=== PATIENT | male | born 1960 | race Caucasian/White ===

== ENCOUNTER 2016-08-18 14:36 | Emergency (ER) | payer MEDICARE, OTHER ==
[~2016-08-18] VITALS: Ht 172.7 cm; Wt 66.0 kg
[~2016-08-18 14:36] MED LIST: BUPR-175 PO; KLON2TAB PO; LITH300 PO; LOVA10TA PO; PRED20 PO
[2016-08-18 15:12] VITALS: BP 119/88; PULSE 113; RESP 16; TEMP 98.1; O2SAT 98
[2016-08-18] MEDS ORDERED: PRED20 PO (15:12)
[2016-08-18] MEDS ORDERED: LOVA10TA PO (15:12)
[2016-08-18] MEDS ORDERED: AVOD0.5C PO (15:12)
[2016-08-18] MEDS ORDERED: WELLTAB39 PO (15:12)
[2016-08-18] MEDS ORDERED: OMEP20TA PO (15:12)
[2016-08-18] MEDS ORDERED: DIAZ5 PO (15:12)
[2016-08-18] MEDS ORDERED: HYDR12.57 PO (15:12)
[2016-08-18] MEDS ORDERED: SODIUM CHLORIDE 0.9% FLUSH 5 ML FLUSH IVF PRN (15:15)
[2016-08-18] MEDS ORDERED: ASPIRIN 81 MG CHEW TAB PO ONE (15:15)
[2016-08-18 15:28] VITALS: RESP 16; O2SAT 97
[2016-08-18 15:29] VITALS: BP_SYST 113; BP_SYST 119; BP_DIAS 76; BP_DIAS 92; PULSE 108; RESP 16; O2SAT 98
[2016-08-18 15:31] LABS: AUTOMATED NEUTROPHIL # 8.3 TH/MM3 (1.8-7.7); BASOPHIL # 0.1 TH/MM3 (0-0.2); BASOPHIL % 0.9 % (0.0-2.0); EOSINOPHIL % 0.3 % (0.0-4.0); LYMPH % 9.2 % (9.0-44.0); LYMPHOCYTE # 0.9 TH/MM3 (1.0-4.8); MEAN CELL VOLUME 89.5 FL (80.0-100.0); MEAN CORPUSCULAR HEMOGLOBIN 29.8 PG (27.0-34.0); MEAN CORPUSCULAR HGB CONC 33.3 % (32.0-36.0); NEUT % 86.6 % (16.0-70.0); PLATELET COUNT 173 TH/MM3 (150-450); RED BLOOD COUNT 4.91 MIL/MM3 (4.50-5.90); WHITE BLOOD COUNT 9.6 TH/MM3 (4.0-11.0)
--- NOTE | 2016-08-18 15:32 | RADHPO ---
EXAM DATE/TIME: 08/18/2016 15:25 [facility] COMPARISON: No previous studies available for comparison. INDICATIONS : Chest pains. MEDICAL HISTORY : None. SURGICAL HISTORY : None. ENCOUNTER: Initial ACUITY: 1 day PAIN SCORE: 7/10 LOCATION: Left chest FINDINGS: A single view of the chest demonstrates the lungs to be symmetrically aerated without evidence of mas s, infiltrate or effusion. The cardiomediastinal contours are unremarkable. Osseous structures are intact. CONCLUSION: No acute disease. Inder Maldonado MD FACR on August 18, 2016 at 15:30 Board Certified Radiologist. This report was verified electronically.
[2016-08-18 15:40] LABS: CHLORIDE 96 MEQ/L (98-107); POTASSIUM 3.9 MEQ/L (3.5-5.1); SODIUM (NA) 133 MEQ/L (136-145)
[2016-08-18 15:44] LABS: ANION GAP 9 MEQ/L (5-15); BICARBONATE 28.4 MEQ/L (21.0-32.0); BLOOD UREA NITROGEN 19 MG/DL (7-18)
[2016-08-18 15:47] LABS: ALT (GPT) 96 U/L (12-78); AST (GOT) 17 U/L (15-37); GLOMERULAR FILTRATION RATE 92 ML/MIN (>89)
[2016-08-18 15:49] LABS: TOTAL BILIRUBIN ADULT 0.2 MG/DL (0.2-1.0)
[2016-08-18 15:50] LABS: ALKALINE PHOSPHATASE 58 U/L (45-117)
[2016-08-18 16:15] LABS: HEMO FLAGS DIFF FINAL
--- NOTE | 2016-08-18 16:26 | PD ---
HPI Chief Complaint: Chest Pain Time Seen by Provider: 15:06 Travel History International Travel<30 days: No Contact w/Intl Traveler<30days: No Traveled to known affect area: No History of Present Illness HPI This is a 56-year-old male who has a history of hyperlipidemia who presents to the emergency department with left chest discomfort described as a heaviness that started this morning associated with some shortness of breath, moderate severity, resolved in the emergency department lasting for about an hour. He denies any associated nausea or diaphoresis. He's not had pain like this before. He thinks he had a stress test some 20 years ago. He is a difficult historian. PFSH Past Medical History Hx Anticoagulant Therapy: No Asthma: No Blood Disorders: No Bipolar Disorder: Yes Anxiety: Yes Depression: Yes Heart Rhythm Problems: No Cancer: No Cardiovascular Problems: Yes (HTN, CHOL) High Cholesterol: Yes Chemotherapy: No Chest Pain: No Congestive Heart Failure: No COPD: No Cerebrovascular Accident: No Diabetes: No Diminished Hearing: No Endocrine: No Gastrointestinal Disorders: Yes ("COLONOSCOPIES" X3 PER PT POLYPS REMOVED) Glaucoma: No Genitourinary: Yes (BPH) Headaches: No Hypertension: Yes Immune Disorder: No Implanted Vascular Access Dvce: No Musculoskeletal: No Neurologic: Yes (FACIAL NERVE PALSEY) Psychiatric: Yes (BIPOLAR) Reproductive: No Respiratory: No Immunizations Current: No Migraines: No Pneumonia: Yes Radiation Therapy: No Seizures: No Sleep Apnea: No Thyroid Disease: No Past Surgical History Abdominal Surgery: Yes (COLONOSCOPY X3) AICD: No Appendectomy: Yes Arteriovenous Shunt: No Cardiac Surgery: No Ear Surgery: No Endocrine Surgery: No Eye Surgery: No Genitourinary Surgery: No Hysterectomy: No Insulin Pump: No Joint Replacement: No Neurologic Surgery: No Pacemaker: No Thoracic Surgery: No Other Surgery: Yes Social History Alcohol Use: Yes (OCC) Tobacco Use: Yes (1 PPD + CIGARS) Substance Use: No Allergies-Medications (Allergen,Severity, Reaction): Coded Allergies: No Known Allergies (Verified , 08/18/16) Reported Meds & Prescriptions Reported Meds & Active Scripts Active Reported Hydrochlorothiazide 12.5 Mg Cap Unknown Dose PO DAILY Omeprazole 20 Mg Tab 20 Mg PO DAILY Avodart (Dutasteride) 0.5 Mg Cap 0.5 Mg PO DAILY Prednisone 20 Mg Tab 20 Mg PO BID Lovastatin 10 Mg Tab 10 Mg PO DAILY Valium (Diazepam) 5 Mg Tab 5 Mg PO DAILY PRN Wellbutrin Xl 24 HR (Bupropion HCl) 300 Mg Tab 300 Mg PO DAILY Review of Systems Except as stated in HPI: all other systems reviewed are Neg Physical Exam Narrative GENERAL:Well appearing, no acute distress SKIN: Warm and dry. HEAD: Atraumatic. Normocephalic. EYES: Pupils equal and round. No injection or drainage. ENT: Moist mucous membranes NECK: Trachea midline. CARDIOVASCULAR: Regular rate and rhythm. No murmur appreciated. RESPIRATORY: Clear to auscultation. Breath sounds equal bilaterally. GASTROINTESTINAL: Abdomen soft, non-tender, nondistended. MUSCULOSKELETAL: No obvious deformities. NEUROLOGICAL: Awake and alert. No obvious cranial nerve deficits. Moving all extremities. 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 Able to understand questions and articulate appropriate responses. Has decision-making capacity on my assessment. Data Data Last Documented VS Vital Signs Date Time Temp Pulse Resp B/P Pulse Ox O2 Delivery O2 Flow Rate FiO2 08/18/16 15:29 108 16 113/76 98 Nasal Cannula 2 119/92 08/18/16 15:12 98.1 Orders Electrocardiogram (08/18/16 15:15) Complete Blood Count With Diff (08/18/16 15:15) Comprehensive Metabolic Panel (08/18/16 15:15) Troponin I (08/18/16 15:15) Chest, Single Ap (08/18/16 15:15) Ecg Monitoring (08/18/16 15:15) Bilateral Bp Monitoring (08/18/16 15:15) Iv Access Insert/Monitor (08/18/16 15:15) Oximetry (08/18/16 15:15) Oxygen Administration (08/18/16 15:15) Aspirin Chew (Aspirin Chew) (08/18/16 15:15) Sodium Chloride 0.9% Flush (Ns Flush) (08/18/16 15:15) Labs Laboratory Tests Test 08/18/16 15:20 White Blood Count 9.6 TH/MM3 Red Blood Count 4.91 MIL/MM3 Hemoglobin 14.6 GM/DL Hematocrit 44.0 % Mean Corpuscular Volume 89.5 FL Mean Corpuscular Hemoglobin 29.8 PG Mean Corpuscular Hemoglobin 33.3 % Concent Red Cell Distribution Width 14.0 % Platelet Count 173 TH/MM3 Mean Platelet Volume 7.6 FL Neutrophils (%) (Auto) 86.6 % Lymphocytes (%) (Auto) 9.2 % Monocytes (%) (Auto) 3.0 % Eosinophils (%) (Auto) 0.3 % Basophils (%) (Auto) 0.9 % Neutrophils # (Auto) 8.3 TH/MM3 Lymphocytes # (Auto) 0.9 TH/MM3 Monocytes # (Auto) 0.3 TH/MM3 Eosinophils # (Auto) 0.0 TH/MM3 Basophils # (Auto) 0.1 TH/MM3 CBC Comment DIFF FINAL Differential Comment Sodium Level 133 MEQ/L Potassium Level 3.9 MEQ/L Chloride Level 96 MEQ/L Carbon Dioxide Level 28.4 MEQ/L Anion Gap 9 MEQ/L Blood Urea Nitrogen 19 MG/DL Creatinine 0.86 MG/DL Estimat Glomerular Filtration 92 ML/MIN Rate Random Glucose 79 MG/DL Calcium Level 9.0 MG/DL Total Bilirubin 0.2 MG/DL Aspartate Amino Transf 17 U/L (AST/SGOT) Alanine Aminotransferase 96 U/L (ALT/SGPT) Alkaline Phosphatase 58 U/L Troponin I LESS THAN 0.02 NG/ML Total Protein 6.1 GM/DL Albumin 3.4 GM/DL MDM Medical Decision Making Medical Screen Exam Complete: Yes Emergency Medical Condition: Yes Interpretation(s) EKG: Normal sinus rhythm with no ST changes No leukocytosis Mild hyponatremia Troponin is normal Differential Diagnosis Acute coronary syndrome, pulmonary embolism, panic attack, costochondritis Narrative Course This is a 56-year-old male who presents to the emergency department with chest discomfort. We sent a monitor and an IV was established. Labs were obtained which were reassuring. EKG was obtained which was nonischemic. Chest x-ray was obtained which was normal. I did offer the patient observation for serial cardiac enzymes and stress testing. He declined and wanted to go home. He says he feels much better and he is not concerned about his heart anymore. I think he has decision-making capacity and I can't keep him against his will. Patient was discharged home. Diagnosis Primary Impression: Chest pain Qualified Code: R07.9 - Chest pain, unspecified type Patient Instructions: General Instructions Additional Instructions: If you develop severe chest pain, shortness of breath, sweating, lightheadedness , dizziness or difficulty breathing return to the emergency department immediately. Followup with your primary care physician in 2-3 days if your symptoms are not resolved. Med/Other Pt SpecificInfo: No Change to Meds Disposition: 01 DISCHARGE HOME Condition: Stable Mady Rios MD Aug 18, 2016 16:26
[2016-08-18 16:32] VITALS: BP 110/80
--- NOTE | 2016-08-25 14:56 | EKG ---
Date Performed: 08/18/2016 Time Performed: 14:39:58 PTAGE: 56 years EKG: Sinus rhythm Compared to prior tracing no significant change Normal ECG PREVIOUS TRACING : 04/08/2016 14.59 DOCTOR: Bert Eason Interpretating Date/Time 08/25/2016 14:54:47
== END 2016-08-18 16:49 | disposition home or self-care (01) ==
LOC: PHED 14:36
DX: R07.9 Chest pain, unspecified (principal); R06.02 Shortness of breath
CPT/HCPCS: 71010; 80053; 84484; 85025; 93005

== ENCOUNTER 2016-08-24 14:22 | Emergency (ER) | payer MEDICARE, OTHER ==
[~2016-08-24] VITALS: Ht 165.1 cm; Wt 65.0 kg
[2016-08-24] VITALS (7 sets, daily range): BP systolic 91–115; BP diastolic 61–75; PULSE 82–122; RESP 16–18; TEMP 98.7; O2SAT 95–100
[~2016-08-24 14:22] MED LIST changes: +AVOD0.5C PO; -BUPR-175 PO; +DIAZ5 PO; +HYDR12.57 PO; -KLON2TAB PO; -LITH300 PO; +OMEP20TA PO; +WELLTAB39 PO
[2016-08-24] MEDS ORDERED: SODIUM CHLOR 0.9% 1000 ML INJ 1,000 ML IV ONE (14:45)
--- NOTE | 2016-08-24 14:53 | PD ---
HPI Chief Complaint: Psychiatric Symptoms Time Seen by Provider: 14:45 Travel History International Travel<30 days: No Contact w/Intl Traveler<30days: No Traveled to known affect area: No History of Present Illness HPI Patient is a 56-year-old male brought to emergency Department under [place] act. Patient was naked in public banging on a bystander's car with his autistic son allegedly who was also naked. Patient is a poor historian, he denies any complaints at this time. Patient is mumbling random thoughts. Per EMS patient had a syncopal episode while in police custody which is why EMS brought the patient in consult of the police. PFSH Past Medical History Hx Anticoagulant Therapy: No Asthma: No Blood Disorders: No Bipolar Disorder: Yes Anxiety: Yes Depression: Yes Heart Rhythm Problems: No Cancer: No High Cholesterol: Yes Chemotherapy: No Chest Pain: No Congestive Heart Failure: No COPD: No Cerebrovascular Accident: No Diabetes: No Diminished Hearing: No Endocrine: No Gastrointestinal Disorders: Yes ("COLONOSCOPIES" X3 PER PT POLYPS REMOVED) Glaucoma: No Genitourinary: Yes (BPH) Headaches: No Hypertension: Yes Immune Disorder: No Implanted Vascular Access Dvce: No Musculoskeletal: No Neurologic: Yes (FACIAL NERVE PALSEY) Reproductive: No Respiratory: No Immunizations Current: No Migraines: No Pneumonia: Yes Radiation Therapy: No Seizures: No Sleep Apnea: No Thyroid Disease: No Influenza Vaccination: No (unknown) Past Surgical History Abdominal Surgery: Yes AICD: No Appendectomy: Yes Arteriovenous Shunt: No Cardiac Surgery: No Ear Surgery: No Endocrine Surgery: No Eye Surgery: No Genitourinary Surgery: No Hysterectomy: No Insulin Pump: No Joint Replacement: No Neurologic Surgery: No Pacemaker: No Thoracic Surgery: No Other Surgery: Yes Social History Alcohol Use: Yes (OCC) Tobacco Use: Yes (1 PPD + CIGARS) Substance Use: Yes (cocaine) Allergies-Medications (Allergen,Severity, Reaction): Coded Allergies: No Known Allergies (Verified , 08/18/16) Reported Meds & Prescriptions Reported Meds & Active Scripts Active Ventolin Hfa 18 GM Inh (Albuterol Sulfate) 90 Mcg/Act Aer 2 Puff INH Q4-6H PRN Prednisone 50 Mg Tab 50 Mg PO DAILY Azithromycin 250 Mg Tab 250 Mg PO DIRECTED Take 2 tabs (500 mg) on day 1 then 1 tab daily x 4 days. Reported Hydrochlorothiazide 12.5 Mg Cap Unknown Dose PO DAILY Omeprazole 20 Mg Tab 20 Mg PO DAILY Avodart (Dutasteride) 0.5 Mg Cap 0.5 Mg PO DAILY Prednisone 20 Mg Tab 20 Mg PO BID Lovastatin 10 Mg Tab 10 Mg PO DAILY Valium (Diazepam) 5 Mg Tab 5 Mg PO DAILY PRN Wellbutrin Xl 24 HR (Bupropion HCl) 300 Mg Tab 300 Mg PO DAILY Review of Systems ROS Limitations: Altered Mental Status Except as stated in HPI: all other systems reviewed are Neg Cardiovascular: No: Chest Pain or Discomfort Respiratory: No: Shortness of Breath Neurologic: Positive: Syncope Physical Exam Narrative GENERAL: Well-developed, well-nourished, alert male. SKIN: Warm and dry. HEAD: Atraumatic. Normocephalic. EYES: Pupils equal and round. No scleral icterus. No injection or drainage. ENT: No nasal bleeding or discharge. Mucous membranes pink and moist. NECK: Trachea midline. No JVD. CARDIOVASCULAR: Tachycardic. No murmur appreciated. RESPIRATORY: No accessory muscle use. Coarse breath sounds throughout, diminished in bases. GASTROINTESTINAL: Abdomen soft, non-tender, nondistended. Hepatic and splenic margins not palpable. MUSCULOSKELETAL: No obvious deformities. No clubbing. No cyanosis. No edema. NEUROLOGICAL: Awake and alert. No obvious cranial nerve deficits. Motor grossly within normal limits. Normal speech. PSYCHIATRIC: Appropriate mood and affect; insight and judgment impaired. Data Data Last Documented VS Vital Signs Date Time Temp Pulse Resp B/P Pulse Ox O2 Delivery O2 Flow Rate FiO2 08/24/16 17:47 96 18 113/73 97 Room Air 08/24/16 14:25 98.7 Orders Complete Blood Count With Diff (08/24/16 14:31) Comprehensive Metabolic Panel (08/24/16 14:31) Prothrombin Time / Inr (Pt) (08/24/16 14:31) Act Partial Throm Time (Ptt) (08/24/16 14:31) Lactic Acid Sepsis Protocol (08/24/16 14:31) Magnesium (Mg) (08/24/16 14:31) Ckmb (Isoenzyme) Profile (08/24/16 14:31) Troponin I (08/24/16 14:31) Urinalysis - C+S If Indicated (08/24/16 14:31) Blood Culture (08/24/16 14:31) Sodium Chlor 0.9% 1000 Ml Inj (Ns 1000 M (08/24/16 14:45) Drug Screen, Random Urine (08/24/16 14:55) Chest, Single Ap (08/24/16 ) Psych Screen (08/24/16 15:52) Magnesium Sulfate 1 Gm Premix (Magnesium (08/24/16 16:15) Ct Brain W/O Iv Contrast(Rout) (08/24/16 ) Albuterol-Ipratropium Neb (Duoneb Neb) (08/24/16 16:15) Sputum Culture And Gram Stain (08/24/16 16:47) Azithromycin Inj (Zithromax Inj) (08/24/16 17:00) Methylprednisolone So Succ Inj (Solumedr (08/24/16 17:30) Labs Laboratory Tests Test 08/24/16 08/24/16 14:40 14:57 White Blood Count 6.5 TH/MM3 Red Blood Count 4.01 MIL/MM3 Hemoglobin 12.2 GM/DL Hematocrit 35.6 % Mean Corpuscular Volume 88.7 FL Mean Corpuscular Hemoglobin 30.4 PG Mean Corpuscular Hemoglobin 34.3 % Concent Red Cell Distribution Width 14.2 % Platelet Count 120 TH/MM3 Mean Platelet Volume 7.5 FL Neutrophils (%) (Auto) 84.0 % Lymphocytes (%) (Auto) 12.7 % Monocytes (%) (Auto) 3.1 % Eosinophils (%) (Auto) 0.1 % Basophils (%) (Auto) 0.1 % Neutrophils # (Auto) 5.4 TH/MM3 Lymphocytes # (Auto) 0.8 TH/MM3 Monocytes # (Auto) 0.2 TH/MM3 Eosinophils # (Auto) 0.0 TH/MM3 Basophils # (Auto) 0.0 TH/MM3 CBC Comment DIFF FINAL Differential Comment Prothrombin Time 10.6 SEC Prothromb Time International 1.0 RATIO Ratio Activated Partial 20.3 SEC Thromboplast Time Sodium Level 135 MEQ/L Potassium Level 3.5 MEQ/L Chloride Level 102 MEQ/L Carbon Dioxide Level 23.5 MEQ/L Anion Gap 10 MEQ/L Blood Urea Nitrogen 33 MG/DL Creatinine 0.60 MG/DL Estimat Glomerular Filtration 140 ML/MIN Rate Random Glucose 88 MG/DL Lactic Acid Level 0.8 mmol/L Calcium Level 7.9 MG/DL Magnesium Level 1.4 MG/DL Total Bilirubin 0.3 MG/DL Aspartate Amino Transf 15 U/L (AST/SGOT) Alanine Aminotransferase 45 U/L (ALT/SGPT) Alkaline Phosphatase 47 U/L Total Creatine Kinase 31 U/L Troponin I 0.02 NG/ML Total Protein 5.0 GM/DL Albumin 3.0 GM/DL Urine Color YELLOW Urine Turbidity CLEAR Urine pH 7.0 Urine Specific [place] 1.021 Urine Protein NEG mg/dL Urine Glucose (UA) NEG mg/dL Urine Ketones NEG mg/dL Urine Occult Blood NEG Urine Nitrite NEG Urine Bilirubin NEG Urine Urobilinogen LESS THAN 2.0 MG/DL Urine Leukocyte Esterase NEG Urine RBC 1 /hpf Urine WBC 2 /hpf Urine Mucus FEW /lpf Microscopic Urinalysis Comment CATH-CULT NOT IND Urine Opiates Screen NEG Urine Barbiturates Screen NEG Urine Amphetamines Screen NEG Urine Benzodiazepines Screen POS Urine Cocaine Screen NEG Urine Cannabinoids Screen NEG MDM Medical Decision Making Medical Screen Exam Complete: Yes Emergency Medical Condition: Yes Interpretation(s) Last Impressions Head CT 08/24/16 0000 Signed Impressions: Service Date/Time: Wednesday, August 24, 2016 17:05 - CONCLUSION: Normal examination. Edward Ferrer MD Chest X-Ray 08/24/16 0000 Signed Impressions: Service Date/Time: Wednesday, August 24, 2016 15:07 - CONCLUSION: No acute disease. Edward Ferrer MD Laboratory Tests Vital Signs Date Time Temp Pulse Resp B/P Pulse Ox O2 Delivery O2 Flow Rate FiO2 08/24/16 16:34 86 103/75 97 Room Air 08/24/16 15:26 92 18 97/69 98 Room Air 08/24/16 15:04 113 108/61 95 Room Air 08/24/16 14:25 98.7 122 91/62 Test 08/24/16 08/24/16 14:40 14:57 White Blood Count 6.5 TH/MM3 Red Blood Count 4.01 MIL/MM3 Hemoglobin 12.2 GM/DL Hematocrit 35.6 % Mean Corpuscular Volume 88.7 FL Mean Corpuscular Hemoglobin 30.4 PG Mean Corpuscular Hemoglobin 34.3 % Concent Red Cell Distribution Width 14.2 % Platelet Count 120 TH/MM3 Mean Platelet Volume 7.5 FL Neutrophils (%) (Auto) 84.0 % Lymphocytes (%) (Auto) 12.7 % Monocytes (%) (Auto) 3.1 % Eosinophils (%) (Auto) 0.1 % Basophils (%) (Auto) 0.1 % Neutrophils # (Auto) 5.4 TH/MM3 Lymphocytes # (Auto) 0.8 TH/MM3 Monocytes # (Auto) 0.2 TH/MM3 Eosinophils # (Auto) 0.0 TH/MM3 Basophils # (Auto) 0.0 TH/MM3 CBC Comment DIFF FINAL Differential Comment Prothrombin Time 10.6 SEC Prothromb Time International 1.0 RATIO Ratio Activated Partial 20.3 SEC Thromboplast Time Sodium Level 135 MEQ/L Potassium Level 3.5 MEQ/L Chloride Level 102 MEQ/L Carbon Dioxide Level 23.5 MEQ/L Anion Gap 10 MEQ/L Blood Urea Nitrogen 33 MG/DL Creatinine 0.60 MG/DL Estimat Glomerular Filtration 140 ML/MIN Rate Random Glucose 88 MG/DL Lactic Acid Level 0.8 mmol/L Calcium Level 7.9 MG/DL Magnesium Level 1.4 MG/DL Total Bilirubin 0.3 MG/DL Aspartate Amino Transf 15 U/L (AST/SGOT) Alanine Aminotransferase 45 U/L (ALT/SGPT) Alkaline Phosphatase 47 U/L Total Creatine Kinase 31 U/L Troponin I 0.02 NG/ML Total Protein 5.0 GM/DL Albumin 3.0 GM/DL Urine Color YELLOW Urine Turbidity CLEAR Urine pH 7.0 Urine Specific [place] 1.021 Urine Protein NEG mg/dL Urine Glucose (UA) NEG mg/dL Urine Ketones NEG mg/dL Urine Occult Blood NEG Urine Nitrite NEG Urine Bilirubin NEG Urine Urobilinogen LESS THAN 2.0 MG/DL Urine Leukocyte Esterase NEG Urine RBC 1 /hpf Urine WBC 2 /hpf Urine Mucus FEW /lpf Microscopic Urinalysis Comment CATH-CULT NOT IND Urine Opiates Screen NEG Urine Barbiturates Screen NEG Urine Amphetamines Screen NEG Urine Benzodiazepines Screen POS Urine Cocaine Screen NEG Urine Cannabinoids Screen NEG Differential Diagnosis Substance abuse versus mood disorder versus sepsis versus CVA versus electrolyte abnormality versus cardiac arrhythmia versus other Narrative Course Patient is a 56-year-old male brought in by EMS under [place] act for evaluation after being found in public naked banging on the bystander car. Patient was tachycardic when EMS arrived on the scene with a heart rate in the 140s, he's been given 1 L IV fluids en route, his heart rate is 120s now, BP 90s over 50s. Patient's thought process is all over the place. Labs and imaging ordered and pending. IV access initiated, telemetry monitoring and continuous pulse oximetry placed. CBC reviewed, platelets 120, mild anemia noted. Chemistry mag 1.4, calcium 7.9 Urine tox screen is positive for benzodiazepines. Patient does admit to taking Valium. Urinalysis unremarkable Coags are unremarkable Chest x-ray is unremarkable DuoNeb 2 ordered due to coarse breath sounds and extra wheezing. Patient does have a nonproductive cough. Vital signs remain stable, patient is no longer tachycardic with a heart rate of 86, blood pressure improved from 91/62-->103/75 after 2 L of IV fluids. CT scan of brain shows no acute abnormality. Patient given Solu-Medrol as well as azithromycin. Patient has a long history of tobacco use since he was a teenager, patient likely has undiagnosed COPD. Patient will be given a prescription for prednisone and azithromycin as well as albuterol inhaler. Patient is medically cleared for psychiatric evaluation at this time. Diagnosis Primary Impression: Medical clearance for psychiatric admission Additional Impression: Chronic obstructive pulmonary disease (COPD) suggested by initial evaluation Med/Other Pt SpecificInfo: Prescription(s) given Scripts Albuterol 18 GM Inh (Ventolin Hfa 18 GM Inh)90 Mcg/Act Aer2 Puff INH Q4-6H PRN ( SHORTNESS OF BREATH) #1 INHALER Ref 0 Prov:Pearl Wills 08/24/16 Prednisone 50 Mg Tab50 Mg PO DAILY #5 TAB Ref 0 Prov:Pearl Wills 08/24/16 Azithromycin 250 Mg Rmg909 Mg PO DIRECTED #6 TAB Ref 0 Take 2 tabs (500 mg) on day 1 then 1 tab daily x 4 days. Prov:Pearl Wills 08/24/16 Condition: Stable Pearl Wills Aug 24, 2016 14:53
[2016-08-24 15:03] LABS: AUTOMATED NEUTROPHIL # 5.4 TH/MM3 (1.8-7.7); BASOPHIL % 0.1 % (0.0-2.0); EOSINOPHIL % 0.1 % (0.0-4.0); HEMATOCRIT 35.6 % (39.0-51.0); HEMO FLAGS DIFF FINAL; LYMPH % 12.7 % (9.0-44.0); LYMPHOCYTE # 0.8 TH/MM3 (1.0-4.8); MEAN CELL VOLUME 88.7 FL (80.0-100.0); MEAN CORPUSCULAR HEMOGLOBIN 30.4 PG (27.0-34.0); MEAN CORPUSCULAR HGB CONC 34.3 % (32.0-36.0); MONO % 3.1 % (0.0-8.0); PLATELET COUNT 120 TH/MM3 (150-450); RED BLOOD COUNT 4.01 MIL/MM3 (4.50-5.90); RED CELL DISTRIBUTION WIDTH 14.2 % (11.6-17.2); WHITE BLOOD COUNT 6.5 TH/MM3 (4.0-11.0)
--- NOTE | 2016-08-24 15:17 | RADRPT ---
EXAM DATE/TIME: 08/24/2016 15:07 [facility] COMPARISON: CHEST SINGLE AP, August 18, 2016, 15:25. INDICATIONS : Wheezing, Chest Pain. MEDICAL HISTORY : None. SURGICAL HISTORY : None. ENCOUNTER: Initial ACUITY: 1 day PAIN SCORE: 4/10 LOCATION: Bilateral chest FINDINGS: A single view of the chest demonstrates the lungs to be symmetrically aerated without evidence of mas s, infiltrate or effusion. The cardiomediastinal contours are unremarkable. Osseous structures are intact. CONCLUSION: No acute disease. Edward Ferrer MD on August 24, 2016 at 15:16 Board Certified Radiologist. This report was verified electronically.
[2016-08-24 15:21] LABS: AMPHETAMINE, URINE NEG (NEG); BARBITURATES, URINE NEG (NEG); COCAINE, URINE NEG (NEG)
[2016-08-24 15:23] LABS: BLOOD, URINE NEG (NEG); GLUCOSE,URINE NEG (NEG); KETONE, URINE NEG (NEG); MUCUS URINE FEW /lpf (OCC); NITRITE,URINE NEG (NEG); URINE COLOR YELLOW (YELLW/STRAW)
[2016-08-24 15:25] LABS: APTT (PATIENT) 20.3 SEC (24.3-30.1); PROTHROMBIN TIME - PATIENT 10.6 SEC (9.8-11.6)
[2016-08-24 15:25] LABS: COMMENT (UR) CATH-CULT NOT IND; CULTURE IF INDICATED CATH CULTURE NOT IND
[2016-08-24 15:26] LABS: ALT (GPT) 45 U/L (12-78); ANION GAP 10 MEQ/L (5-15); AST (GOT) 15 U/L (15-37); BICARBONATE 23.5 MEQ/L (21.0-32.0); BLOOD UREA NITROGEN 33 MG/DL (7-18); CHLORIDE 102 MEQ/L (98-107); GLOMERULAR FILTRATION RATE 140 ML/MIN (>89); MAGNESIUM 1.4 MG/DL (1.5-2.5); POTASSIUM 3.5 MEQ/L (3.5-5.1); SODIUM (NA) 135 MEQ/L (136-145)
[2016-08-24 15:30] LABS: ALKALINE PHOSPHATASE 47 U/L (45-117); TOTAL BILIRUBIN ADULT 0.3 MG/DL (0.2-1.0)
[2016-08-24 15:40] LABS: CREATINE KINASE 31 U/L (39-308)
[2016-08-24] MEDS: RESP: ALBUTEROL 2.5 MG/IPRATROPIUM 0.5 MG NEB (SCH) INH ×2 (16:15→16:17)
[2016-08-24] MEDS ORDERED: MAGNESIUM SULFATE 1 GM PREMIX 100 ML IV ONE (16:15)
[2016-08-24] MEDS ORDERED: AZITHROMYCIN INJ 500 MG in SODIUM CHLOR 0.9% 250 ML INJ 250 ML IV ONE (17:00)
--- NOTE | 2016-08-24 17:18 | RADRPT ---
EXAM DATE/TIME: 08/24/2016 17:05 [facility] COMPARISON: No previous studies available for comparison. INDICATIONS : Altered mental status today. RADIATION DOSE: 40.21 CTDIvol (mGy) MEDICAL HISTORY : Hypertension. SURGICAL HISTORY : Appendectomy. ENCOUNTER: Initial ACUITY: 1 day PAIN SCALE: 0/10 LOCATION: Bilateral head TECHNIQUE: Multiple contiguous axial images were obtained of the head. Using automated exposure control and adj ustment of the mA and/or kV according to patient size, radiation dose was kept as low as reasonably a chievable to obtain optimal diagnostic quality images. FINDINGS: CEREBRUM: The ventricles are normal for age. No evidence of midline shift, mass lesion, hemorrhage or acute in farction. No extra-axial fluid collections are seen. POSTERIOR FOSSA: The cerebellum and brainstem are intact. The 4th ventricle is midline. The cerebellopontine angle i s unremarkable. EXTRACRANIAL: The visualized portion of the orbits is intact. SKULL: The calvaria is intact. No evidence of skull fracture. CONCLUSION: Normal examination. Edward Ferrer MD on August 24, 2016 at 17:16 Board Certified Radiologist. This report was verified electronically.
[2016-08-24] MEDS ORDERED: AZIT250T3 PO (17:30)
[2016-08-24] MEDS ORDERED: PRED50 PO (17:30)
[2016-08-24] MEDS ORDERED: VENTAER INH (17:30)
[2016-08-24] MEDS ORDERED: methylPREDNISolone SOD SUCC 125 MG/2 ML VIAL IV PUSH ONE (17:30)
[2016-08-25 02:34] VITALS: BP 120/68; PULSE 98; RESP 18; O2SAT 100
[2016-08-25 06:40] VITALS: BP 124/86; PULSE 77; RESP 19; O2SAT 99
== END 2016-08-25 09:14 ==
LOC: NEPE 14:22 → NEPJ 08-25 09:14
DX: R55 Syncope and collapse (principal); F31.9 Bipolar disorder, unspecified; I10 Essential (primary) hypertension; J44.9 Chronic obstructive pulmonary disease, unspecified; F17.200 Nicotine dependence, unspecified, uncomplicated; R00.0 Tachycardia, unspecified
CPT/HCPCS: 70450; 71010; 80053; 80307; 81001; 82550; 83605; 83735; 84484; 85025; 85610; 85730; 87040; 87070; 87205; 94640; 94664; 96361; 96365; 96367; 96375; 99285; J0456; J2930; J3475; J7030; J7050

== ENCOUNTER 2017-02-24 13:48 | Inpatient (IN) | payer MEDICARE, OTHER ==
[~2017-02-24] VITALS: Ht 175.3 cm; Wt 77.0 kg
[2017-02-24 13:57] VITALS: BP 126/78; PULSE 124; RESP 18; TEMP 98.2; O2SAT 94
[2017-02-24] MEDS ORDERED: SODIUM CHLOR 0.9% 1000 ML INJ 1,000 ML IV SCH (14:02)
[2017-02-24 14:12] VITALS: BP 126/78; PULSE 123; RESP 18; TEMP 98.2; O2SAT 95
--- NOTE | 2017-02-24 14:14 | PD ---
HPI Chief Complaint: General Weakness Time Seen by Provider: 14:02 Travel History International Travel<30 days: No Contact w/Intl Traveler<30days: No Traveled to known affect area: No History of Present Illness HPI 57-year-old male to presents to the ED for evaluation of generalized weakness. Patient is a poor historian apparently this is chronic for him. The review patient's medical records and he does have a history of extensive psychiatric history with bipolar and from every no time noted that most providers found that the patient was a difficult historian. Patient reports that he "passed out ". Per ambulance report he was found laying down on the grass for an unknown reason. Patient states that he feels weak. Per patient he has ankle pain. Per patient this is new. He denies any chest pain or abdominal pain. He denies any nausea or vomiting. Patient comes here with his autistic son. He is not really able to tell me he has any fevers chills or sweats. Per ambulance he had an elevated heart rate and slight temperature. He has no allergies to medication. Patient is not able to tell if takes lithium recently but apparently per patient he does take lithium for his bipolar. She denies any drugs or alcohol. No falls that he can think of. He does state that he did had possible syncopal episode. He states that overall he feels fine other than feeling weak and having some pain to his ankles. PFSH Past Medical History Hx Anticoagulant Therapy: No Asthma: No Blood Disorders: No Bipolar Disorder: Yes Anxiety: Yes Depression: Yes Heart Rhythm Problems: No Cancer: No High Cholesterol: Yes Chemotherapy: No Chest Pain: No Congestive Heart Failure: No COPD: No Cerebrovascular Accident: No Diabetes: No Diminished Hearing: No Endocrine: No Gastrointestinal Disorders: Yes ("COLONOSCOPIES" X3 PER PT POLYPS REMOVED) Glaucoma: No Genitourinary: Yes (BPH) Headaches: No Hypertension: Yes Immune Disorder: No Implanted Vascular Access Dvce: No Musculoskeletal: No Neurologic: Yes (FACIAL NERVE PALSEY) Psychiatric: Yes Reproductive: No Respiratory: No Immunizations Current: No Migraines: No Pneumonia: Yes Radiation Therapy: No Seizures: Yes Sleep Apnea: No Thyroid Disease: No Tetanus Vaccination: Unknown Past Surgical History Abdominal Surgery: Yes AICD: No Appendectomy: Yes Arteriovenous Shunt: No Cardiac Surgery: No Ear Surgery: No Endocrine Surgery: No Eye Surgery: No Genitourinary Surgery: No Hysterectomy: No Insulin Pump: No Joint Replacement: No Neurologic Surgery: No Pacemaker: No Thoracic Surgery: No Other Surgery: Yes Social History Alcohol Use: No Tobacco Use: Yes (1/2 pk/day) Substance Use: No Allergies-Medications (Allergen,Severity, Reaction): Coded Allergies: No Known Allergies (Verified , 08/18/16) Reported Meds & Prescriptions Reported Meds & Active Scripts Active Active Prescriptions or Reported Medications Unobtainable Review of Systems ROS Limitations: Poor Historian Except as stated in HPI: all other systems reviewed are Neg Physical Exam Exam Limitations: Poor Historian Narrative GENERAL: SKIN: Warm and dry. HEAD: Atraumatic. Normocephalic. EYES: Pupils equal and round. No scleral icterus. No injection or drainage. ENT: No nasal bleeding or discharge. Mucous membranes pink and moist. Tongue is midline. No uvula deviation. NECK: Trachea midline. No JVD. CARDIOVASCULAR: Regular rate and rhythm. No murmurs, S3, S4. RESPIRATORY: No accessory muscle use. Clear to auscultation. Breath sounds equal bilaterally. GASTROINTESTINAL: Abdomen soft, non-tender, nondistended. Hepatic and splenic margins not palpable. MUSCULOSKELETAL: Extremities without clubbing, cyanosis, or edema. No obvious deformities. Full range of motion of the upper and lower extremities bilaterally. 2+ pulses bilaterally. Full range of motion of the ankles no obvious bony deformity noted on the ankles. NEUROLOGICAL: Awake and alert. No obvious cranial nerve deficits. Motor grossly within normal limits. Five out of 5 muscle strength in the arms and legs. Normal speech. PSYCHIATRIC: Appropriate mood and affect; insight and judgment normal. Data Data Last Documented VS Vital Signs Date Time Temp Pulse Resp B/P (MAP) Pulse Ox O2 Delivery O2 Flow Rate FiO2 02/24/17 14:13 95 Room Air 02/24/17 14:12 98.2 123 18 126/78 (94) Orders Orders Electrocardiogram (02/24/17 14:02) Complete Blood Count With Diff (02/24/17 14:02) Comprehensive Metabolic Panel (02/24/17 14:02) Ckmb (Isoenzyme) Profile (02/24/17 14:02) Troponin I (02/24/17 14:02) Blood Culture (02/24/17 14:02) Urinalysis - C+S If Indicated (02/24/17 14:02) Magnesium (Mg) (02/24/17 14:02) [place] (Li) (02/24/17 14:02) Thyroid Stimulating Hormone (02/24/17 14:02) Chest, Single Ap (02/24/17 14:02) Ct Brain W/O Iv Contrast(Rout) (02/24/17 14:02) Iv Access Insert/Monitor (02/24/17 14:02) Ecg Monitoring (02/24/17 14:02) Oximetry (02/24/17 14:02) Orthostatic Vital Signs (02/24/17 14:02) Drug Screen, Random Urine (02/24/17 14:02) Alcohol (Ethanol) (02/24/17 14:02) Salicylates (Aspirin) (02/24/17 14:02) Tylenol (Acetaminophen) (02/24/17 14:02) Lactic Acid (02/24/17 14:02) Sodium Chlor 0.9% 1000 Ml Inj (Ns 1000 M (02/24/17 14:02) Ankle, Limited (Ap&Lat) (02/24/17 14:09) Ice/Cold Pack (02/24/17 14:09) Ankle, Limited (Ap&Lat) (02/24/17 ) Sodium Chlor 0.9% 1000 Ml Inj (Ns 1000 M (02/24/17 14:55) Vancomycin Inj (Vancomycin Inj) (02/24/17 14:55) Piperacil-Tazo 4.5 Gm Premix (Zosyn 4.5 (02/24/17 14:55) Lactic Acid Sepsis Protocol (02/24/17 14:58) CKMB (02/24/17 14:05) CKMB% (02/24/17 14:05) Cath For Specimen (02/24/17 15:42) Sodium Chlor 0.45% 1000 Ml Inj (1/2 Ns 1 (02/24/17 16:15) Admit Order (Ed Use Only) (02/24/17 16:05) Labs Laboratory Tests Test 02/24/17 14:05 02/24/17 14:10 White Blood Count 6.0 TH/MM3 Red Blood Count 4.08 MIL/MM3 Hemoglobin 12.3 GM/DL Hematocrit 36.5 % Mean Corpuscular Volume 89.6 FL Mean Corpuscular Hemoglobin 30.1 PG Mean Corpuscular Hemoglobin Concent 33.6 % Red Cell Distribution Width 16.6 % Platelet Count 151 TH/MM3 Mean Platelet Volume 7.1 FL Neutrophils (%) (Auto) 86.7 % Lymphocytes (%) (Auto) 8.1 % Monocytes (%) (Auto) 5.0 % Eosinophils (%) (Auto) 0.0 % Basophils (%) (Auto) 0.2 % Neutrophils # (Auto) 5.2 TH/MM3 Lymphocytes # (Auto) 0.5 TH/MM3 Monocytes # (Auto) 0.3 TH/MM3 Eosinophils # (Auto) 0.0 TH/MM3 Basophils # (Auto) 0.0 TH/MM3 CBC Comment AUTO DIFF Differential Comment AUTO DIFF CONFIRMED Platelet Estimate NORMAL Platelet Morphology Comment NORMAL Red Cell Morphology Comment NORMAL Blood Urea Nitrogen 36 MG/DL Creatinine 0.92 MG/DL Random Glucose 113 MG/DL Total Protein 6.1 GM/DL Albumin 3.2 GM/DL Calcium Level 8.2 MG/DL Magnesium Level 1.2 MG/DL Alkaline Phosphatase 105 U/L Aspartate Amino Transf (AST/SGOT) 27 U/L Alanine Aminotransferase (ALT/SGPT) 111 U/L Total Bilirubin 0.3 MG/DL Sodium Level 146 MEQ/L Potassium Level 3.2 MEQ/L Chloride Level 109 MEQ/L Carbon Dioxide Level 26.2 MEQ/L Anion Gap 11 MEQ/L Estimat Glomerular Filtration Rate 85 ML/MIN Total Creatine Kinase 139 U/L Creatine Kinase MB 2.0 NG/ML Troponin I 0.04 NG/ML Thyroid Stimulating Hormone 3rd Gen 0.231 uIU/ML Salicylates Level LESS THAN 1.7 MG/DL Acetaminophen Level LESS THAN 2.0 MCG/ML [place] Level LESS THAN 0.1 MEQ/L Ethyl Alcohol Level LESS THAN 3 MG/DL Lactic Acid Level 3.9 mmol/L [facility] Medical Decision Making Medical Screen Exam Complete: Yes Emergency Medical Condition: Yes Medical Record Reviewed: Yes Interpretation(s) CBC & BMP Diagram 02/24/17 14:05 Total Protein 6.1 L, Albumin 3.2 L, Calcium Level 8.2 L, Magnesium Level 1.2 L, Alkaline Phosphatase 105, Aspartate Amino Transf (AST/SGOT) 27, Alanine Aminotransferase (ALT/SGPT) 111 H, Total Bilirubin 0.3 lactic acid of 3.9 troponin and CKMB negative Last Impressions Ankle X-Ray 02/24/17 1409 Signed Impressions: Service Date/Time: Friday, February 24, 2017 15:04 - CONCLUSION: 1. No acute fracture or subluxation of the right ankle. 2. Mild fibular talar osteoarthritis. 3. Potentially an old, healed fracture of the distal fibula. Oleg Manrique MD Head CT 02/24/17 1402 Signed Impressions: Service Date/Time: Friday, February 24, 2017 15:07 - CONCLUSION: 1. No evidence of acute intracranial pathology. No masses are identified. Mild ischemic changes Bert Austin MD Chest X-Ray 02/24/17 1402 Signed Impressions: Service Date/Time: Friday, February 24, 2017 15:02 - CONCLUSION: No evidence of acute cardiopulmonary disease. Oleg Manrique MD Ankle X-Ray 02/24/17 0000 Signed Impressions: Service Date/Time: Friday, February 24, 2017 15:04 - CONCLUSION: Minimal osteoarthritis of the left ankle. No acute abnormality. Oleg Manrique MD Last Impressions Ankle X-Ray 02/24/17 1409 Signed Impressions: Service Date/Time: Friday, February 24, 2017 15:04 - CONCLUSION: 1. No acute fracture or subluxation of the right ankle. 2. Mild fibular talar osteoarthritis. 3. Potentially an old, healed fracture of the distal fibula. Oleg Manrique MD Head CT 02/24/17 140 Signed Impressions: Service Date/Time: Friday, February 24, 2017 15:07 - CONCLUSION: 1. No evidence of acute intracranial pathology. No masses are identified. Mild ischemic changes Bert Austin MD Chest X-Ray 02/24/17 1402 Signed Impressions: Service Date/Time: Friday, February 24, 2017 15:02 - CONCLUSION: No evidence of acute cardiopulmonary disease. Oleg Manrique MD Ankle X-Ray 02/24/17 0000 Signed Impressions: Service Date/Time: Friday, February 24, 2017 15:04 - CONCLUSION: Minimal osteoarthritis of the left ankle. No acute abnormality. Oleg Manrique MD Differential Diagnosis Altered mental status versus generalized weakness versus syncope versus dehydration versus normal exam Narrative Course 57-year-old male that presents to the ED for evaluation of weakness. Patient was properly examined and was found to have signs and symptoms of unclear etiology at this time. Patient somewhat of a poor historian this appears to be chronic for him. He does appear to 4 over have had a possible syncopal episode. Patient states that he was in the sun a lot today. Concern for the hydration. Patient is tachycardic and had a slight fever per ambulance. here 98 temperature. At this time labs and imaging will be ordered. CT of the head was ordered. Patient was given IV fluids as well. labs and imaging show what appears to be sepsis with lactic acid of 3.9 and although WBCs appears to be normal he does have elevated neutrophils. No obvious site of infection. Case was discussed in my attending who recommends admission for further evaluation. Case discussed with Dr. Yost who recommends that we discontinue normal saline and put in half-normal saline bolus and will admit. Sepsis Criteria SIRS Criteria (2 or more): Heart rate over 90 Severe Sepsis (+one): Lactate >2 Diagnosis Primary Impression: Syncope Qualified Codes: R55 - Syncope and collapse Additional Impression: Sepsis Qualified Codes: A41.9 - Sepsis, unspecified organism Admitting Information Admitting Physician Requests: Observation Scripts Unable to Obtain Active Prescriptions or Reported Meds Chris Moise Feb 24, 2017 14:14
[2017-02-24 14:30] LABS: AUTOMATED NEUTROPHIL # 5.2 TH/MM3 (1.8-7.7); BASOPHIL % 0.2 % (0.0-2.0); HEMATOCRIT 36.5 % (39.0-51.0); LYMPH % 8.1 % (9.0-44.0); LYMPHOCYTE # 0.5 TH/MM3 (1.0-4.8); MEAN CELL VOLUME 89.6 FL (80.0-100.0); MEAN CORPUSCULAR HEMOGLOBIN 30.1 PG (27.0-34.0); MEAN CORPUSCULAR HGB CONC 33.6 % (32.0-36.0); NEUT % 86.7 % (16.0-70.0); PLATELET COUNT 151 TH/MM3 (150-450); RED BLOOD COUNT 4.08 MIL/MM3 (4.50-5.90); RED CELL DISTRIBUTION WIDTH 16.6 % (11.6-17.2)
[2017-02-24 14:34] LABS: HEMO FLAGS AUTO DIFF
[2017-02-24] MEDS ORDERED: SODIUM CHLOR 0.9% 1000 ML INJ 1,000 ML IV ONE (14:55)
[2017-02-24] MEDS ORDERED: PIPERACIL-TAZO 4.5 GM PREMIX 100 ML IV STA (14:55)
[2017-02-24] MEDS ORDERED: VANCOMYCIN INJ 1,000 MG in SODIUM CHLOR 0.9% 250 ML INJ 250 ML IV STA (14:55)
[2017-02-24 14:58] LABS: ACETAMINOPHEN LESS THAN 2.0 MCG/ML (10.0-30.0); ALKALINE PHOSPHATASE 105 U/L (45-117); CREATINE KINASE 139 U/L (39-308); TOTAL BILIRUBIN ADULT 0.3 MG/DL (0.2-1.0)
--- NOTE | 2017-02-24 15:09 | RADRPT ---
EXAM DATE/TIME: 02/24/2017 15:02 [facility] COMPARISON: No previous studies available for comparison. INDICATIONS : Chest pain. MEDICAL HISTORY : None. SURGICAL HISTORY : None. ENCOUNTER: Initial ACUITY: 1 day PAIN SCORE: 5/10 LOCATION: Bilateral chest FINDINGS: A single view of the chest demonstrates the lungs to be symmetrically aerated without evidence of mas s, infiltrate or effusion. The cardiomediastinal contours are unremarkable. Osseous structures are intact. CONCLUSION: No evidence of acute cardiopulmonary disease. Oleg Manrique MD on February 24, 2017 at 15:07 Board Certified Radiologist. This report was verified electronically.
[2017-02-24 15:10] LABS: ALT (GPT) 111 U/L (12-78); ANION GAP 11 MEQ/L (5-15); AST (GOT) 27 U/L (15-37); BICARBONATE 26.2 MEQ/L (21.0-32.0); BLOOD UREA NITROGEN 36 MG/DL (7-18); CHLORIDE 109 MEQ/L (98-107); GLOMERULAR FILTRATION RATE 85 ML/MIN (>89); MAGNESIUM 1.2 MG/DL (1.5-2.5); POTASSIUM 3.2 MEQ/L (3.5-5.1); SODIUM (NA) 146 MEQ/L (136-145)
--- NOTE | 2017-02-24 15:11 | RADRPT ---
EXAM DATE/TIME: 02/24/2017 15:04 [facility] COMPARISON: No previous studies available for comparison. INDICATIONS : Right ankle pain. No known trauma. MEDICAL HISTORY : None. SURGICAL HISTORY : None. ENCOUNTER: Initial ACUITY: 1 day PAIN SCORE: 10/10 LOCATION: Right ankle FINDINGS: No acute fracture or subluxation seen of the right ankle. There may have been an old spiral fracture of the distal fibula, healed in normal alignment. Mild fibular talar osteoarthritis noted. No soft ti ssue swelling. CONCLUSION: 1. No acute fracture or subluxation of the right ankle. 2. Mild fibular talar osteoarthritis. 3. Potentially an old, healed fracture of the distal fibula. Oleg Manrique MD on February 24, 2017 at 15:08 Board Certified Radiologist. This report was verified electronically.
--- NOTE | 2017-02-24 15:12 | RADRPT ---
EXAM DATE/TIME: 02/24/2017 15:04 [facility] COMPARISON: No previous studies available for comparison. INDICATIONS : Left ankle pain. No known trauma. MEDICAL HISTORY : None. SURGICAL HISTORY : None. ENCOUNTER: Initial ACUITY: 1 day PAIN SCORE: 10/10 LOCATION: Left ankle FINDINGS: There is no fracture or subluxation of the left ankle. No soft tissue swelling or radiopaque foreign body. Slight tibiotalar and fibulotalar degenerative changes. CONCLUSION: Minimal osteoarthritis of the left ankle. No acute abnormality. Oleg Manrique MD on February 24, 2017 at 15:10 Board Certified Radiologist. This report was verified electronically.
[2017-02-24 15:21] LABS: PLATELET ESTIMATE SMEAR NORMAL (NORMAL); PLATELET MORPHOLOGY NORMAL (NORMAL); SCAN/DIFF AUTO DIFF CONFIRMED
--- NOTE | 2017-02-24 15:26 | RADRPT ---
EXAM DATE/TIME: 02/24/2017 15:07 [facility] COMPARISON: CT BRAIN W/O CONTRAST, August 24, 2016, 17:05. INDICATIONS : Altered mental status. RADIATION DOSE: 29.6 CTDIvol (mGy) MEDICAL HISTORY : Hypertension. SURGICAL HISTORY : Appendectomy. ENCOUNTER: Initial ACUITY: 1 day PAIN SCALE: 0/10 LOCATION: cranial TECHNIQUE: Multiple contiguous axial images were obtained of the head. Using automated exposure control and adj ustment of the mA and/or kV according to patient size, radiation dose was kept as low as reasonably a chievable to obtain optimal diagnostic quality images. DICOM format image data is available electro nically for review and comparison. FINDINGS: CEREBRUM: The ventricles are normal for age. No evidence of midline shift, mass lesion, hemorrhage or acute in farction. No extra-axial fluid collections are seen. There is decreased density in the periventricul ar white matter consistent with small vessel vascular disease not unexpected in a patient of this age . POSTERIOR FOSSA: The cerebellum and brainstem are intact. The 4th ventricle is midline. The cerebellopontine angle i s unremarkable. EXTRACRANIAL: The visualized portion of the orbits is intact. SKULL: The calvaria is intact. No evidence of skull fracture. CONCLUSION: 1. No evidence of acute intracranial pathology. No masses are identified. Mild ischemic changes Bert Autsin MD on February 24, 2017 at 15:23 Board Certified Radiologist. This report was verified electronically.
[2017-02-24 15:36] LABS: ALCOHOL LESS THAN 3 MG/DL (0-5)
[2017-02-24] MEDS ORDERED: SODIUM CHLOR 0.45% 1000 ML INJ 1,000 ML IV ONE (16:15)
[2017-02-24 16:16] VITALS: BP 120/86; PULSE 96; RESP 20; O2SAT 100
[2017-02-24] MEDS ORDERED: Vancomycin Consult Pharmacy 1 EA OTHER SCH (16:30)
[2017-02-24] MEDS ORDERED: SODIUM CHLORIDE 0.9% FLUSH 10 ML FLUSH IV FLUSH PRN (16:30)
[2017-02-24] MEDS ORDERED: ONDANSETRON HCL 4 MG/2 ML VIAL IVP PRN (16:30)
[2017-02-24] MEDS ORDERED: NALOXONE HCL 0.4 MG/ML AMP IV PRN (16:30)
[2017-02-24] MEDS ORDERED: ACETAMINOPHEN 325 MG TAB PO PRN (16:30)
[2017-02-24] MEDS ORDERED: BUPR100CR PO (16:44)
[2017-02-24] MEDS ORDERED: LITH150C PO (16:44)
[2017-02-24 16:53] LABS: BLOOD, URINE NEG (NEG); COMMENT (UR) CULT NOT INDICATED; CULTURE IF INDICATED CULT NOT INDICATED; GLUCOSE,URINE NEG (NEG); HYALINE CAST, URINE 1 /lpf (RARE); KETONE, URINE 10 mg/dL (NEG); MUCUS URINE FEW /lpf (OCC); NITRITE,URINE NEG (NEG); URINE COLOR YELLOW (YELLW/STRAW)
[2017-02-24] MEDS ORDERED: BUPR150XL PO (17:39)
[2017-02-24] MEDS ORDERED: TERA5CAP3 PO (17:39)
[2017-02-24] MEDS ORDERED: HYDR25TA5 PO (17:39)
[2017-02-24] MEDS ORDERED: OMEP20TA PO (17:39)
[2017-02-24] MEDS ORDERED: DEPA500T3 PO ×2 (17:39)
[2017-02-24] MEDS ORDERED: DIAZ5 PO (17:39)
[2017-02-24] MEDS ORDERED: ZYPR10TA PO (17:39)
[2017-02-24] MEDS ORDERED: LURA40 PO (17:39)
[2017-02-24] MEDS ORDERED: LISI40TA PO (17:39)
[2017-02-24] MEDS ORDERED: POTASSIUM CHLORIDE 10 MEQ CONTROLLED RELEASE TAB PO ONE (18:15)
--- NOTE | 2017-02-24 18:15 | HHI.PR ---
Objective Objective Results - Vital Signs Date Time Temp Pulse Resp B/P (MAP) Pulse Ox O2 Delivery O2 Flow Rate FiO2 02/24/17 16:16 96 20 120/86 (97) 100 Room Air 02/24/17 14:13 95 Room Air 02/24/17 14:12 98.2 123 18 126/78 (94) 95 Room Air 02/24/17 13:57 98.2 124 18 126/78 (94) 94 I/O 02/23/17 02/23/17 02/23/17 02/24/17 02/24/17 02/24/17 07:00 15:00 23:00 07:00 15:00 23:00 Intake Total 2250 ml Balance 2250 ml Intake IV Total 2250 ml Result Diagram: 02/24/17 1405 02/24/17 1405 A/P Assessment and Plan dictated [id number] Linda Hdez Feb 24, 2017 18:15
[2017-02-24 18:30] LABS: LACTIC ACID GHOST NOT REPORTABLE
[2017-02-24] MEDS: MAGNESIUM SULFATE 1 GM PREMIX 100 ML IV SCH ×2 (18:48→20:49)
[2017-02-24] MEDS: SODIUM CHLOR 0.45% 1000 ML INJ 1,000 ML IV SCH (18:48)
[2017-02-24 19:56] VITALS: BP 116/79; PULSE 89; RESP 20; TEMP 97.7; O2SAT 98
[2017-02-24 20:11] VITALS: PULSE 82
[2017-02-24] MEDS: ENOXAPARIN SODIUM 40 MG/0.4 ML SYRINGE SQ SCH (20:45)
[2017-02-24] MEDS: SODIUM CHLORIDE 0.9% FLUSH 10 ML FLUSH IV FLUSH SCH (20:45)
[2017-02-24] MEDS: PIPERACIL-TAZO 3.375 GM PREMIX 50 ML IV SCH (23:20)
[2017-02-24 23:59] VITALS: PULSE 82
[2017-02-25] VITALS (12 sets, daily range): BP systolic 118–137; BP diastolic 76–98; PULSE 72–91; RESP 17–20; TEMP 97.6–99.3; O2SAT 95–99
[2017-02-25] MEDS ORDERED: DIVALPROEX SODIUM E.R. 500 MG TAB PO SCH ×4 (02:00→21:00)
[2017-02-25] MEDS ORDERED: ACETAMINOPHEN 325 MG TAB PO PRN (02:15)
[2017-02-25] MEDS: PIPERACIL-TAZO 3.375 GM PREMIX 50 ML IV SCH ×3 (04:56→16:52)
[2017-02-25] MEDS: SODIUM CHLORIDE 0.9% FLUSH 10 ML FLUSH IV FLUSH SCH ×2 (08:30→20:59)
[2017-02-25] MEDS: DIVALPROEX SODIUM E.R. 500 MG TAB PO SCH (08:30)
--- NOTE | 2017-02-25 09:11 | MH ---
cc: LINDA YOST MD DATE OF ADMISSION: 02/24/[address] Yost present. CHIEF COMPLAINT Weakness, difficulty ambulating. HISTORY OF PRESENT ILLNESS This is a 57 year old white male who, according to the record, was found lying outside on the ground for an unknown period of time. The patient reports that he passed out, was brought into the emergency room for further evaluation. Since he has been here, he gas had multiple complaints of aching and malaise all over. He states that he has pain in his legs, that his feet are going numb and that he has had trouble walking for the past few months. He does note some nausea and vomiting a few times, denies any dizziness. The patient does stutter and repeat himself frequently. He is known bipolar and has been placed on [place]. He states that he tries to take his medicines, but that it is very difficult. It is unknown where he is taking his medications or not. The patient initially was tachycardic in the emergency room, but heart rate has now come down to 96. The patient states he may have had a fever in the recent past, but it is unknown. The patient is given multiple medical information, but also is flighty in his descriptions and is sometimes hard to follow. According to the record, he does have an extensive psychiatric history. According to the record, the patient is complaining of bilateral ankle pain along with numbness and bilateral ankle pain. During my exam, the patient started complaining of penile pain, states he also has had trouble with dysuria and constipation. PAST MEDICAL HISTORY According to the record, 1. Seizures 2. Bipolar disorder 3. Anxiety depression 4. Hyperlipidemia 5. Tobacco use 6. Colon polyps 7. Benign prostatic hypertrophy 8. Facial nerve palsy 9. Pneumonia PAST SURGICAL HISTORY 1. Some type of abdominal surgery 2. Appendectomy ALLERGIES No known. MEDICATIONS Reported, according to the record. 1. Terazosin 2. Lisinopril 3. Depakote 4. Wellbutrin 5. Latuda 6. Zyprexa 7. Valium 8. [place] 9. Hydrochlorothiazide 10. Omeprazole SOCIAL HISTORY The patient states he is . He lives in his home with his son who is with him now. He states he has smoked for many years since a teenager. Denies any alcohol or illicit drugs. REVIEW OF SYSTEMS Poor historian, positives noted during my assessment include - Numbness in his feet, weakness in his legs bilateral, fever, unsure if he has taken his medications, nausea and vomiting a few times. The patient does stutter. He notes problems with dysuria and constipation in the past. Other systems negative or unremarkable. PHYSICAL EXAMINATION VITAL SIGNS: Temperature 98.2, pulse 124, now 96, respiratory rate 18 and 20, blood pressure initially 126/78, now 120/86, O2 saturation 100% current on room air. GENERAL: Well-developed white male looks older than his stated age resting on a stretcher. His eyes are open. He is awake. SKIN: Warm to touch, dry. HEENT: Normocephalic, atraumatic. Pupils equal, round, reactive to light and accommodation, 4 bilateral. No scleral icterus. Mucous membranes are pink and moist. No drainage or discharge noted. Tongue is midline. NECK: Supple. CARDIOVASCULAR: S1, S2. Tachycardic rhythm. Heart sounds are distant but no audible murmurs, rubs or gallops. RESPIRATORY: Essentially clear anteriorly and posteriorly with no wheezing, rales or rhonchi. ABDOMEN: Round, soft, nontender, nondistended with active bowel sounds. MUSCULOSKELETAL: Some generalized weakness noted on his lower extremities but can overcome resistance for a short period of time. Moves upper extremities with purpose. Hand double needle stitcher are equal. NEUROLOGIC: He is awake, alert, a poor historian. Speech is clear and understandable. PSYCHIATRIC: Mood and affect are non-aggressive. Affect is flighty. LABORATORY DATA WBC count 6, RBC 4.08, hemoglobin 12.3, hematocrit 36.5, neutrophil percentage count 86.7, lymphocyte count 8.1. Sodium 146, potassium 3.2, chloride 109, carbon dioxide 26.2, BUN 36, creatinine 0.92, GFR 85, random glucose 113, lactic acid 3.9, now 2.5. Calcium 8.2, magnesium 1.2. AST 27, ALT 111, total creatine kinase 139, alkaline phosphatase 105. CK MB 2. Troponin 0.04. Total protein 6.1. Albumin 3.2, TSH third generation 0.231. Urine is yellow, clear, positive for protein at 30, ketones at 10, negative for glucose, occult blood, nitrites, bilirubin, leukocyte esterase. PH is 7, specific gravity 1.026. No culture is indicated. IMAGING STUDIES Left ankle x-ray minimal osteoarthritis. Right ankle x-ray shows no acute fracture, mild fibula talar osteoarthritis, potentially an old heel fracture of the distal fibula. Chest x-ray - no evidence of acute cardiopulmonary disease. Head CT - no evidence of acute intracranial pathology, no masses are identified. Mild ischemic changes. ASSESSMENT 1. Hypomagnesemia 2. Tachycardia 3. Possible sepsis with an initial lactic acid level of 3.9, unspecified 4. Generalized weakness of his lower extremities and bilateral feet. 5. Anemia, mild 6. Hypokalemia 7. Acute kidney injury with probably dehydration, uncontrolled. 8. Possible syncope and collapse 9. History of bipolar disorder, noncompliance. PLAN Place patient on vancomycin and Zosyn. He received one dose of each in the emergency room. His initial labs were drawn, medications were reconciled from a previous list. We will monitor his vital signs q 4 and as needed. Cardiac monitoring. Heart healthy diet. Continue hydration with IV fluids for his acute kidney injury. We will draw labs in the morning. The patient will receive one gram of magnesium sulfate times one, free T4 level. He will be admitted inpatient status. We will consult psychiatry for their expert opinion and medical management for his psychiatric medications. We will give him Tylenol as needed for pain, Zofran as needed for nausea and vomiting, DVT prophylaxis with Lovenox. PUD prophylaxis with Protonix. Reconcile medications as warranted. Plan of care - the patient's penis was examined by Dr. Yost and myself, no obvious swelling or drainage noted. We will monitor his intake and output. In the emergency room, the patient was catheterized and had 250-300 of clear yellow urine obtained. Urinalysis was sent to the lab. To my knowledge, the patient is full code, full aggressive care and we will continue to monitor and stabilized. DARRON Smyth dictating Linda Yost MD Dictated by DARRON Huston JP/ /5:58 PM /9:01 AM pt seen and examined on day of admission as above chart was reviwed in detail explained and jimmy pt in ER with rn at bedside plan of care was jimmy SCHULER
--- NOTE | 2017-02-25 09:21 | HHI.PR ---
Subjective Remarks Resting in the bed Son who he cares for is resting with him in the bed Both are requesting crackers to eat Patient still has generalized symptoms of malaise and weakness Afebrile (Linda Hdez) Objective Objective Results - Vital Signs Date Time Temp Pulse Resp B/P (MAP) Pulse Ox O2 Delivery O2 Flow Rate FiO2 02/25/17 07:18 98.0 78 20 137/89 (105) 98 02/25/17 06:33 97.6 84 19 118/78 (91) 97 02/25/17 04:03 72 02/25/17 01:30 97.7 82 19 136/98 (111) 98 02/24/17 23:59 82 02/24/17 20:11 82 02/24/17 19:56 97.7 89 20 116/79 (91) 98 02/24/17 18:09 02/24/17 16:16 96 20 120/86 (97) 100 Room Air 02/24/17 14:13 95 Room Air 02/24/17 14:12 98.2 123 18 126/78 (94) 95 Room Air 02/24/17 13:57 98.2 124 18 126/78 (94) 94 I/O 02/24/17 02/24/17 02/24/17 02/25/17 02/25/17 02/25/17 07:00 15:00 23:00 07:00 15:00 23:00 Intake Total 2250 ml Balance 2250 ml Intake IV Total 2250 ml # Voids 1 1 # Bowel Movements 1 (Linda Hdez) Result Diagram: 02/24/17 1405 02/24/17 1405 ROS General: Fatigue, Weakness, Other (limited 10 point assessment done) Neuro/MS: Confusion (altered mental status which may be his norm with his bipolar disease) (Linda Hdez) Physical Exam Physical Exam PHYSICAL EXAMINATION GENERAL: This is a male resting in the bed who appears to be in no acute distress. He is awake,. HEAD: Normocephalic, Facial features appear symmetric. OROPHARYNGEAL: Stutters at times NECK: Supple. Trachea midline without deviation. CARDIAC: Regular rhythm, regular rate, S1 and S2 audible LUNGS: Clear to auscultation bilaterally. No use of accessory muscles on inspiration or expiration. ABDOMEN: Soft, nontender, round Bowel sounds are heard in all four quadrants. EXTREMITIES: No LE edema. Pulses equal bilateral. NEUROLOGICAL: Patient mood calm for now but does show some mild anxiety. speech is clear but does stutter SKIN:Warm and moist Objective Remarks Febrile illness with malise Possible syncope and collaspe (Linda Hdez) A/P Assessment and Plan Vital signs reviewed, fairly patient is afebrile trends are normal Labs reviewed, labs are pending this morning BMP, patient received by mouth potassium on admission for mild hypokalemia, continue to monitor febrile illness Possible sepsis, unspecified, COPD, oxygen, duonebs, monitor symptoms Tachycardia, resolved to HR under 100, currently ranging in the 70s Generalized weakness/malise, improved with IV fluids today, patient did appear to be dehydrated on admission. Less complaints of symptoms of aching, pain, etc. Bipolar disorder, uncontrolled, psy eval for medical clearance Patient also has his son who has some type of possible psych disorder with him. Patient is the caregiver, we'll have case management work on discharge planning since this may be a safety issue for patient and his son. KYLE, dehydration, IV hydration since admission, patient is more alert, feeling better with generalized aches and malise, labs are pending Anemia, mild, probable secondary to his chronic diseases, no obvious blood loss Bowel regimin, Patient had a large bowel movement after arriving to the hospital states his abdomen is not hurting her cramping anymore Discussed with patient, ordered diet for son Discussed with Dr. 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
[2017-02-25] MEDS: VANCOMYCIN INJ 1,500 MG in SODIUM CHLORID 0.9% 500 ML INJ 500 ML IV SCH ×2 (09:22→21:02)
[2017-02-25 10:52] LABS: AUTOMATED NEUTROPHIL # 1.6 TH/MM3 (1.8-7.7); BASOPHIL % 0.2 % (0.0-2.0); EOSINOPHIL % 0.3 % (0.0-4.0); HEMATOCRIT 28.6 % (39.0-51.0); HEMO FLAGS DIFF FINAL; LYMPH % 34.5 % (9.0-44.0); LYMPHOCYTE # 0.9 TH/MM3 (1.0-4.8); MEAN CELL VOLUME 91.7 FL (80.0-100.0); MEAN CORPUSCULAR HEMOGLOBIN 30.8 PG (27.0-34.0); MEAN CORPUSCULAR HGB CONC 33.6 % (32.0-36.0); MONO % 4.6 % (0.0-8.0); NEUT % 60.4 % (16.0-70.0); PLATELET COUNT 103 TH/MM3 (150-450); RED BLOOD COUNT 3.12 MIL/MM3 (4.50-5.90); RED CELL DISTRIBUTION WIDTH 17.2 % (11.6-17.2); WHITE BLOOD COUNT 2.7 TH/MM3 (4.0-11.0)
[2017-02-25 11:25] LABS: ALKALINE PHOSPHATASE 82 U/L (45-117); ALT (GPT) 84 U/L (12-78); ANION GAP 6 MEQ/L (5-15); AST (GOT) 24 U/L (15-37); BICARBONATE 28.1 MEQ/L (21.0-32.0); BLOOD UREA NITROGEN 13 MG/DL (7-18); CHLORIDE 111 MEQ/L (98-107); FREE T4 0.64 NG/DL (0.76-1.46); GLOMERULAR FILTRATION RATE 137 ML/MIN (>89); POTASSIUM 4.3 MEQ/L (3.5-5.1); SODIUM (NA) 145 MEQ/L (136-145); TOTAL BILIRUBIN ADULT 0.2 MG/DL (0.2-1.0)
[2017-02-25] MEDS: SODIUM CHLOR 0.45% 1000 ML INJ 1,000 ML IV SCH ×2 (11:27→20:02)
--- NOTE | 2017-02-25 12:42 | PD.PSY.CON ---
Provisional Diagnosis Admission Date Feb 24, 2017 at 16:27 [place] I. Bipolar disorder type I, most recent episode manic [place] II. Deferred History of Present Illness Service Psychiatry Consult Requested By Reason for Consult Manic behavior Primary Care Physician Alfonso Rodgers MD HPI The patient is a 57-year-old occasions man, domiciled with his son in [facility], unemployed, , supported by [facility], with psychotic history of bipolar disorder, previous hospitalizations, established outpatient care with Dr. Rodgers, he is on Depakote 500 mg a.m., 1000 mg bedtime, like to the 40 mg, Wellbutrin 150 mg twice a day, Valium 10 mg twice a day, medical history hypertension, COPD , who presents to the ED for evaluation of generalized weakness. Per ER notes Patient is a poor historian apparently this is chronic for him. The review patient's medical records and he does have a history of extensive psychiatric history with bipolar and from every no time noted that most providers found that the patient was a difficult historian. Patient reports that he "passed out ". Per ambulance report he was found laying down on the grass for an unknown reason. Patient states that he feels weak. Per patient he has ankle pain. Per patient this is new. He denies any chest pain or abdominal pain. He denies any nausea or vomiting. Patient comes here with his autistic son. He is not really able to tell me he has any fevers chills or sweats. Per ambulance he had an elevated heart rate and slight temperature. He has no allergies to medication. Patient is not able to tell if takes lithium recently but apparently per patient he does take lithium for his bipolar. She denies any drugs or alcohol. No falls that he can think of. He does state that he did had possible syncopal episode. He states that overall he feels fine other than feeling weak and having some pain to his ankles. On psychiatric evaluation today patient is found in the ER cubicle with his son. Patient at the beginning resistant, oppositional, very upset. She reports that nurses and not be putting attentions to his needs. He feels the medical team is also neglecting him. Patient was able to be redirected and reassured. Patient explains that he has psychiatric history of bipolar disorder, but he has been stable in current psychotropic regimen. At this moment the patient denies depressive symptoms, he denies anhedonia, he denies hopelessness, helplessness, low self-esteem, denies difficulty sleeping, with concentration and appetite, denies suicidal or homicidal ideation. He also denies visual and auditory hallucinations. Patient is oriented 3, without attention deficit, fluctuation of consciousness and gross cognitive impairment present. He does become at times disorganized, and even little bit paranoid/guarded, but no pressure speech , no delusions, gross paranoia, no restlessness, no ideas of reference, no loosening of associations are present. Patient denies the use of alcohol and illicit drugs. Review of Systems Constitutional: COMPLAINS OF: Fatigue, DENIES: Diaphoretic episodes, Fever, Weight gain, Weight loss, Chills, Dizziness, Change in appetite, Night Sweats Endocrine: DENIES: Heat/cold intolerance, Polydipsia, Polyuria, Polyphagia Eyes: DENIES: Blurred vision, Diplopia, Eye inflammation, Eye pain, Vision loss , Photosensitivity, Double Vision Ears, nose, mouth, throat: DENIES: Tinnitus, Hearing loss, Vertigo, Nasal discharge, Oral lesions, Throat pain, Hoarseness, Ear Pain, Running Nose, Epistaxis, Sinus Pain, Toothache, Odynophagia Respiratory: DENIES: Apneas, Cough, Snoring, Wheezing, Hemoptysis, Sputum production, Shortness of breath Cardiovascular: DENIES: Chest pain, Palpitations, Syncope, Dyspnea on Exertion , PND, Lower Extremity Edema, Orthopnea, Claudication Gastrointestinal: DENIES: Abdominal pain, Black stools, Bloody stools, Constipation, Diarrhea, Nausea, Vomiting, Difficulty Swallowing, Anorexia Musculoskeletal: DENIES: Joint pain, Muscle aches, Stiffness, Joint Swelling, Back pain, Neck pain Integumentary: DENIES: Abnormal pigmentation, Nail changes, Pruritus, Rash Hematologic/lymphatic: DENIES: Bruising, Lymphadenopathy Immunologic/allergic: DENIES: Eczema, Urticaria Neurologic: DENIES: Abnormal gait, Headache, Localized weakness, Paresthesias, Seizures, Speech Problems, Tremor, Poor Balance Psychiatric: DENIES: Anxiety, Confusion, Mood changes, Depression, Hallucinations, Agitation, Suicidal Ideation, Homicidal Ideation, Delusions Past Family Social History Coded Allergies: No Known Allergies (Verified , 08/18/16) Reported Medications Terazosin (Terazosin) 5 Mg Cap, 5 MG PO DAILY, #30 CAP 0 Refills 02/24/17 Omeprazole (Omeprazole) 20 Mg Tab, 20 MG PO DAILY, #30 TAB 0 Refills 02/24/17 Lurasidone (Latuda) 40 Mg Tab, 40 MG PO HS, #30 TAB 0 Refills 02/24/17 Lisinopril (Lisinopril) 40 Mg Tab, 40 MG PO DAILY for Blood Pressure Management , #30 TAB 0 Refills 02/24/17 Hydrochlorothiazide (Hydrochlorothiazide) 25 Mg Tab, 25 MG PO DAILY, #30 TAB 0 Refills 02/24/17 Diazepam (Valium) 5 Mg Tab, 5 MG PO TID, TAB 0 Refills 02/24/17 Olanzapine (Zyprexa) 10 Mg Tab, 10 MG PO HS, #30 TAB 0 Refills 02/24/17 Divalproex ER (Depakote ER) 500 Mg Viviana, 1000 MG PO HS for Control Seizures, # 60 TAB 0 Refills 02/24/17 Divalproex ER (Depakote ER) 500 Mg Viviana, 500 MG PO DAILY IN THE AM for Control Seizures, #30 TAB 0 Refills 02/24/17 Bupropion HCl ER 24 HR (Wellbutrin Xl 24 HR) 150 Mg Tab, 150 MG PO DAILY for Control Depression, TAB 0 Refills 02/24/17 [place] Carbonate ([place] Carbonate) 150 Mg Cap, 150 MG PO QID, CAP 0 Refills 02/24/17 Discontinued Reported Medications Bupropion HCl ER 12 HR (Wellbutrin SR 12 HR) 100 Mg Tab, 100 MG PO Q12HR for Control Depression, TAB 0 Refills 02/24/17 Current Medications Medications (Trade) Dose Ordered Sig/Nanda Route Start Time Stop Time Status Last Admin Sodium Chloride 1,000 ml @ 75 mls/hr [id number] IV 02/24/17 18:00 02/25/17 11:27 (NS Flush) 2 ml UNSCH PRN IV FLUSH 02/24/17 16:30 (NS Flush) 2 ml BID IV FLUSH 02/24/17 21:00 02/24/17 20:45 (Tylenol) 650 mg Q4H PRN PO 02/24/17 16:30 (Zofran Inj) 4 mg Q6H PRN IVP 02/24/17 16:30 (Lovenox Inj) 40 mg Q24H SQ 02/24/17 20:00 02/24/17 20:45 (Narcan Inj) 0.4 mg UNSCH PRN IV 02/24/17 16:30 Piperacillin Sod/ Tazobactam Sod 50 ml @ 100 mls/hr Q6H IV 02/24/17 23:00 02/25/17 11:27 Pharmacy Profile Note 0 ml @ 0 mls/hr UNSCH OTHER 02/24/17 16:30 (Depakote Er) 1,000 mg HS PO 02/25/17 21:00 (Depakote Er) 500 mg DAILY PO 02/25/17 09:00 02/25/17 08:30 (Tylenol) 650 mg Q4H PRN PO 02/25/17 02:15 02/25/17 02:55 (Pneumovax-23 Inj) 25 mcg ONCE ONCE IM 02/26/17 10:00 02/26/17 10:01 Vancomycin HCl 1500 mg/Sodium Chloride 515 ml @ 250 mls/hr Q12H IV 02/25/17 10:00 02/25/17 09:22 Miscellaneous Information SPECIFIC LAB TO BE DRAWN:VANCOMYCIN TROUGH DATE TO... ONCE ONCE .XX 02/27/17 09:45 02/27/17 09:46 Family History She denies family psychiatric history Social History Patient was born and raised in [place], lives in [place] with developmental delay son, unemployed, supported by [facility], , highest level of education is college Patient's Strengths (min. 2) Established outpatient care Physical Exam Vital Signs Vital Signs Date Time Temp Pulse Resp B/P (MAP) Pulse Ox O2 Delivery O2 Flow Rate FiO2 02/25/17 07:18 98.0 78 20 137/89 (105) 98 02/24/17 16:16 Room Air Lab Results Test 02/24/17 14:05 02/24/17 14:10 02/24/17 16:10 02/24/17 16:28 White Blood Count 6.0 TH/MM3 Red Blood Count 4.08 MIL/MM3 Hemoglobin 12.3 GM/DL Hematocrit 36.5 % Mean Corpuscular Volume 89.6 FL Mean Corpuscular Hemoglobin 30.1 PG Mean Corpuscular Hemoglobin Concent 33.6 % Red Cell Distribution Width 16.6 % Platelet Count 151 TH/MM3 Mean Platelet Volume 7.1 FL Neutrophils (%) (Auto) 86.7 % Lymphocytes (%) (Auto) 8.1 % Monocytes (%) (Auto) 5.0 % Eosinophils (%) (Auto) 0.0 % Basophils (%) (Auto) 0.2 % Neutrophils # (Auto) 5.2 TH/MM3 Lymphocytes # (Auto) 0.5 TH/MM3 Monocytes # (Auto) 0.3 TH/MM3 Eosinophils # (Auto) 0.0 TH/MM3 Basophils # (Auto) 0.0 TH/MM3 CBC Comment AUTO DIFF Differential Comment AUTO DIFF CONFIRMED Platelet Estimate NORMAL Platelet Morphology Comment NORMAL Red Cell Morphology Comment NORMAL Blood Urea Nitrogen 36 MG/DL Creatinine 0.92 MG/DL Random Glucose 113 MG/DL Total Protein 6.1 GM/DL Albumin 3.2 GM/DL Calcium Level 8.2 MG/DL Magnesium Level 1.2 MG/DL Alkaline Phosphatase 105 U/L Aspartate Amino Transf (AST/SGOT) 27 U/L Alanine Aminotransferase (ALT/SGPT) 111 U/L Total Bilirubin 0.3 MG/DL Sodium Level 146 MEQ/L Potassium Level 3.2 MEQ/L Chloride Level 109 MEQ/L Carbon Dioxide Level 26.2 MEQ/L Anion Gap 11 MEQ/L Estimat Glomerular Filtration Rate 85 ML/MIN Total Creatine Kinase 139 U/L Creatine Kinase MB 2.0 NG/ML Troponin I 0.04 NG/ML Thyroid Stimulating Hormone 3rd Gen 0.231 uIU/ML Salicylates Level LESS THAN 1.7 MG/DL Acetaminophen Level LESS THAN 2.0 MCG/ML Valproic Acid (Depakene) Level 17 MCG/ML [place] Level LESS THAN 0.1 MEQ/L Ethyl Alcohol Level LESS THAN 3 MG/DL Lactic Acid Level 3.9 mmol/L 2.5 mmol/L Urine Color YELLOW Urine Turbidity CLEAR Urine pH 7.0 Urine Specific [place] 1.026 Urine Protein 30 mg/dL Urine Glucose (UA) NEG mg/dL Urine Ketones 10 mg/dL Urine Occult Blood NEG Urine Nitrite NEG Urine Bilirubin NEG Urine Urobilinogen 2.0 MG/DL Urine Leukocyte Esterase NEG Urine RBC 1 /hpf Urine WBC 3 /hpf Urine Hyaline Casts 1 /lpf Urine Mucus FEW /lpf Microscopic Urinalysis Comment CULT NOT INDICATED Urine Opiates Screen NEG Urine Barbiturates Screen NEG Urine Amphetamines Screen NEG Urine Benzodiazepines Screen POS Urine Cocaine Screen NEG Urine Cannabinoids Screen NEG Test 02/25/17 10:03 White Blood Count 2.7 TH/MM3 Red Blood Count 3.12 MIL/MM3 Hemoglobin 9.6 GM/DL Hematocrit 28.6 % Mean Corpuscular Volume 91.7 FL Mean Corpuscular Hemoglobin 30.8 PG Mean Corpuscular Hemoglobin Concent 33.6 % Red Cell Distribution Width 17.2 % Platelet Count 103 TH/MM3 Mean Platelet Volume 7.0 FL Neutrophils (%) (Auto) 60.4 % Lymphocytes (%) (Auto) 34.5 % Monocytes (%) (Auto) 4.6 % Eosinophils (%) (Auto) 0.3 % Basophils (%) (Auto) 0.2 % Neutrophils # (Auto) 1.6 TH/MM3 Lymphocytes # (Auto) 0.9 TH/MM3 Monocytes # (Auto) 0.1 TH/MM3 Eosinophils # (Auto) 0.0 TH/MM3 Basophils # (Auto) 0.0 TH/MM3 CBC Comment DIFF FINAL Differential Comment Blood Urea Nitrogen 13 MG/DL Creatinine 0.61 MG/DL Random Glucose 143 MG/DL Total Protein 4.9 GM/DL Albumin 2.5 GM/DL Calcium Level 7.9 MG/DL Alkaline Phosphatase 82 U/L Aspartate Amino Transf (AST/SGOT) 24 U/L Alanine Aminotransferase (ALT/SGPT) 84 U/L Total Bilirubin 0.2 MG/DL Sodium Level 145 MEQ/L Potassium Level 4.3 MEQ/L Chloride Level 111 MEQ/L Carbon Dioxide Level 28.1 MEQ/L Anion Gap 6 MEQ/L Estimat Glomerular Filtration Rate 137 ML/MIN Free Thyroxine 0.64 NG/DL Date/Time Source Procedure Growth Status 02/24/17 14:10 Blood Peripheral Aerobic Blood Culture - Preliminary Staph Sp Coagulase Negative Resulted 02/24/17 14:10 Blood Peripheral Anaerobic Blood Culture - Preliminary NO GROWTH IN 1 DAY Resulted Mental Status Examination Appearance [facility], fair hygiene, at the beginning oppositional and irritable, but later on comes calm and cooperative Speech: Unremarkable Orientation: x3 Memory: Unremarkable Thought Process: Logical Thought Content: Unremarkable Hallucination Type: None Attention and Concentration: Good Suicidal Ideation: No Previous Suicide Attempts: No Homicidal Ideation: No Previous Homicide Attempts: No Judgment: WNL Affect: Irritable Mood: Angry, Oppositional Motor Activity: Normal gait Assessment & Plan Problem List: (1) Chronic bipolar disorder ICD Codes: F31.9 - Bipolar disorder, unspecified Assessment & Plan: On psychiatric evaluation today patient does present with irritability, opposition and resistant, but redirectable. He also presents with mild paranoia toward staff in the ER. However, no gross or acute manic behavior such as lack of attention, insomnia, restlessness, increased self- esteem, paranoid delusions, loosening of associations, tangentiality are present during this evaluation. He does have Odd affect, but this seems to be baseline rather than acute symptoms of decompensation of bipolar. I do not see a reason for an involuntary psychiatric admission at this moment. I will restart his outpatient psychotropics. He can continue his psychiatric care as an outpatient with . Extensive support, motivation and psychoeducation provided. We'll follow-up. Assessment & Plan Estimated LOS: Dominick Harris MD Feb 25, 2017 12:41
[2017-02-25] MEDS ORDERED: PILL SPLITTER OTHER PRN (13:30)
[2017-02-25] MEDS: buPROPion HCL 150 MG SUSTAINED RELEASE TAB PO SCH (14:21)
[2017-02-25] MEDS: DIAZEPAM 5 MG TAB PO SCH ×2 (14:21→18:21)
[2017-02-25] MEDS: LITHIUM CARBONATE 300 MG TAB PO SCH ×3 (14:24→21:00)
--- NOTE | 2017-02-25 14:39 | EKG ---
Date Performed: 02/24/2017 Time Performed: 14:46:42 PTAGE: 57 years EKG: SINUS TACHYCARDIA ABNORMAL RHYTHM ECG Compared to prior tracing no significant change PREVIOUS TRACING : 08/18/2016 14.39 DOCTOR: Juan De La O Interpretating Date/Time 02/25/2017 14:34:33
[2017-02-25] MEDS: ENOXAPARIN SODIUM 40 MG/0.4 ML SYRINGE SQ SCH (20:00)
[2017-02-25] MEDS ORDERED: LURASIDONE 40 MG TAB PO SCH (21:00)
[2017-02-26] MEDS: PIPERACIL-TAZO 3.375 GM PREMIX 50 ML IV SCH ×2 (00:03→05:33)
[2017-02-26 00:40] VITALS: PULSE 66
[2017-02-26 04:01] VITALS: PULSE 62
[2017-02-26 04:28] VITALS: BP 154/99; PULSE 74; RESP 19; TEMP 98.2; O2SAT 97
[2017-02-26 08:00] VITALS: BP 146/97; PULSE 62; RESP 18; TEMP 98.6; O2SAT 97
[2017-02-26] MEDS: SODIUM CHLORIDE 0.9% FLUSH 10 ML FLUSH IV FLUSH SCH (09:00)
--- NOTE | 2017-02-26 09:05 | HHI.FF ---
Face to Face Verification Diagnosis: (1) Altered mental state (2) Fever (3) Tachycardia Home Health Nursing Order: Medical education Signs/symptoms of disease process Nursing assessment with vital signs Director Of Social Work Order: To Evaluate: Living conditions/environment, Support services Order: To Provide: Long range planning, Community services I have seen patient Lex Mccoy on 02/26/17. My clinical findings support the need for the requested home health care services because: Deconditioned w/ increased weakness Need for psychosocial assistance Impaired cognition/judgement I certify that my clinical findings support that this patient is homebound because: Impaired cognitive ability/safety Unsafe to leave home unassisted Need for psychosocial assistance Dara Noble [facility] Feb 26, 2017 09:04
--- NOTE | 2017-02-26 09:19 | HHI.PR ---
Subjective Subjective Remarks pt. sitting in lg. bowel movement states he is inc. of stool sometimes no cp no sob wants to get up and get cleared RN at bsd son at bsd Review of Systems Constitutional Constitutional Remarks 12 point ros completed, negative except as noted above Vitals/Results Vital Signs Vital Signs Date Time Temp Pulse Resp B/P (MAP) Pulse Ox O2 Delivery O2 Flow Rate FiO2 02/26/17 04:28 98.2 74 19 154/99 (117) 97 02/26/17 04:01 62 02/26/17 00:40 66 02/25/17 23:15 98.2 80 17 131/88 (102) 95 02/25/17 22:31 16 02/25/17 20:25 91 02/25/17 19:40 99.3 85 17 128/76 (93) 97 02/25/17 17:43 98.4 83 20 131/84 (100) 98 02/25/17 16:25 78 02/25/17 12:53 98.2 90 18 129/84 (99) 99 02/25/17 11:35 88 CBC/BMP: 02/25/17 1003 02/25/17 1003 Lab Results Laboratory Tests Test 02/25/17 10:03 White Blood Count 2.7 TH/MM3 Red Blood Count 3.12 MIL/MM3 Hemoglobin 9.6 GM/DL Hematocrit 28.6 % Mean Corpuscular Volume 91.7 FL Mean Corpuscular Hemoglobin 30.8 PG Mean Corpuscular Hemoglobin Concent 33.6 % Red Cell Distribution Width 17.2 % Platelet Count 103 TH/MM3 Mean Platelet Volume 7.0 FL Neutrophils (%) (Auto) 60.4 % Lymphocytes (%) (Auto) 34.5 % Monocytes (%) (Auto) 4.6 % Eosinophils (%) (Auto) 0.3 % Basophils (%) (Auto) 0.2 % Neutrophils # (Auto) 1.6 TH/MM3 Lymphocytes # (Auto) 0.9 TH/MM3 Monocytes # (Auto) 0.1 TH/MM3 Eosinophils # (Auto) 0.0 TH/MM3 Basophils # (Auto) 0.0 TH/MM3 CBC Comment DIFF FINAL Differential Comment Blood Urea Nitrogen 13 MG/DL Creatinine 0.61 MG/DL Random Glucose 143 MG/DL Total Protein 4.9 GM/DL Albumin 2.5 GM/DL Calcium Level 7.9 MG/DL Alkaline Phosphatase 82 U/L Aspartate Amino Transf (AST/SGOT) 24 U/L Alanine Aminotransferase (ALT/SGPT) 84 U/L Total Bilirubin 0.2 MG/DL Sodium Level 145 MEQ/L Potassium Level 4.3 MEQ/L Chloride Level 111 MEQ/L Carbon Dioxide Level 28.1 MEQ/L Anion Gap 6 MEQ/L Estimat Glomerular Filtration Rate 137 ML/MIN Free Thyroxine 0.64 NG/DL Physical Exam General General Appearance: Well Developed, No Acute Distress, Comfortable, Anxious Eyes Eye Exam: Pupils Equal, Pupils Reactive Ears & Nose Ears & Nose Exam: Nasal Mucosa Sea Bright Throat Throat Exam: Oral Mucosa [place] & Moist Neck Neck Exam: Neck Supple, Trachea Midline Pulmonary Resp Exam: Clear Bilaterally, No Distress Cardiology CV Exam: Regular, Good Perfusion Gastrointestinal/Abdomen GI Exam: Soft, Non-Tender, Bowel Sounds Present, Non-Distended Musculoskeletal MS Exam: Joints Intact Integumentary Skin Exam: Warm, Dry Extremeties Extremities Exam: No Edema, Pedal Pulses Palpable Neurologic Neuro Exam: Alert, Awake, Speech Clear, Moving All Extremities, No Focal Deficits Psychiatric Psych Exam: Appropriate Responses VTE Prophylaxis VTE Prophylaxis Meds: Lovenox Assessment/Plan Problem List: (1) Weakness ICD Codes: R53.1 - Weakness Status: Acute (2) Tachycardia ICD Codes: R00.0 - Tachycardia, unspecified Status: Acute (3) Hypomagnesemia ICD Codes: E83.42 - Hypomagnesemia Status: Acute (4) Lactic acidosis ICD Codes: E87.2 - Acidosis Status: Acute (5) Chronic bipolar disorder ICD Codes: F31.9 - Bipolar disorder, unspecified Status: Chronic (6) HTN (hypertension) ICD Codes: I10 - Essential (primary) hypertension Status: Chronic (7) depressed tsh Status: Acute (8) Leukopenia ICD Codes: D72.819 - Decreased white blood cell count, unspecified Status: Acute (9) Thrombocytopenia ICD Codes: D69.6 - Thrombocytopenia, unspecified Status: Acute Assessment/Plan Generalized weakness, lactic acidosis, tachycardia, possibly dehydration, rule out infection Positive blood cultures -Continue with IV fluids -Blood cultures gram-positive, staph coagulase negative, sensitivity pending. Possibly contaminant -continue with abx for now -No fever, WBC 2.7 Weakness, dehydration -Consult physical therapy for evaluation Bipolar's disorder -Continue with psychiatric meds -Appreciate psychiatric input, there is no need for inpatient psychiatric treatment at this time. -Can follow up with Dr. Ramachandran as outpatient Dehydration, hypernatremia -Continue with IV fluids -Renal function improved Thrombocytopenia Leukopenia Possibly secondary to psychiatric -Continue to monitor CVA Depressed TSH, free T4 0.64 -Repeat TSH today Physical therapy for evaluation and treatment Case management for discharge planning Possible discharge home today with home health care, social work therapist consultation. Patient has a son who is autistic, they both benefit from social work therapist involvement as outpatient. Discussed with RN Discussed with patient Discussed with case management Discussed with Dr. Yost This patient was seen by myself and Dr. Yost, this note is written on his behalf Problem Qualifiers (1) HTN (hypertension): Qualified Codes: I10 - Essential (primary) hypertension (2) Leukopenia: Dara Noble Feb 26, 2017 09:19
[2017-02-26 10:00] VITALS: PULSE 78
[2017-02-26] MEDS: SODIUM CHLOR 0.45% 1000 ML INJ 1,000 ML IV SCH (10:00)
[2017-02-26] MEDS ORDERED: PNEUMOCOCCAL POLYVALENT INJ 25 MCG/0.5 ML SYR IM ONE (10:00)
[2017-02-26] MEDS: DIVALPROEX SODIUM E.R. 500 MG TAB PO SCH (10:02)
[2017-02-26] MEDS: buPROPion HCL 150 MG SUSTAINED RELEASE TAB PO SCH (10:03)
[2017-02-26] MEDS: DIAZEPAM 5 MG TAB PO SCH (10:03)
[2017-02-26] MEDS: LITHIUM CARBONATE 300 MG TAB PO SCH (10:03)
[2017-02-26] MEDS: VANCOMYCIN INJ 1,500 MG in SODIUM CHLORID 0.9% 500 ML INJ 500 ML IV SCH (10:09)
[2017-02-26] MEDS ORDERED: CEFU1TAB20 PO (12:28)
--- NOTE | 2017-02-26 12:29 | HHI.DCPOC ---
Discharge Care Plan Diagnosis: (1) Hypomagnesemia (2) Weakness Your Health Problems Are: Difficulty with ADL Goals to Promote Your Health * To prevent worsening of your condition and complications * To maintain your health at the optimal level Directions to Meet Your Goals Take your medications as prescribed Follow your dietary instruction Follow activity as directed Keep your appointments as scheduled Take your immunizations and boosters as scheduled If your symptoms worsen call your PCP, if no PCP go to Urgent Care Center or Emergency Room Smoking is Dangerous to Your Health. Avoid second hand smoke Call the 24-hour hour crisis hotline for domestic abuse at Dara Noble. [facility] Feb 26, 2017 12:29
[2017-02-26 12:50] LABS: HEMATOCRIT 27.7 % (39.0-51.0); MEAN CELL VOLUME 91.2 FL (80.0-100.0); MEAN CORPUSCULAR HEMOGLOBIN 30.6 PG (27.0-34.0); MEAN CORPUSCULAR HGB CONC 33.5 % (32.0-36.0); PLATELET COUNT 95 TH/MM3 (150-450); RED BLOOD COUNT 3.04 MIL/MM3 (4.50-5.90); RED CELL DISTRIBUTION WIDTH 17.4 % (11.6-17.2)
[2017-02-26 12:57] LABS: REVIEW FLAG FINAL
[2017-02-27] MEDS ORDERED: PHARMACY ORDERED LAB ONE (09:45)
--- NOTE | 2017-02-27 18:38 | HHI.DS ---
Discharge Summary Admission Date Feb 24, 2017 at 16:27 Discharge Date: Feb 26, 2017 Admitting Diagnosis Syncope, dehydration, sepsis, lactic acidosis (1) Syncope ICD Codes: R55 - Syncope and collapse Status: Acute (2) Altered mental state ICD Codes: R41.82 - Altered mental status, unspecified (3) HTN (hypertension) ICD Codes: I10 - Essential (primary) hypertension Status: Chronic (4) Weakness ICD Codes: R53.1 - Weakness Status: Acute (5) Lactic acidosis ICD Codes: E87.2 - Acidosis Status: Acute CBC/BMP: 02/26/17 1230 02/26/17 1230 Significant Findings Laboratory Tests Test 02/25/17 10:03 02/26/17 12:30 White Blood Count 2.7 TH/MM3 (4.0-11.0) 3.0 TH/MM3 (4.0-11.0) Red Blood Count 3.12 MIL/MM3 (4.50-5.90) 3.04 MIL/MM3 (4.50-5.90) Hemoglobin 9.6 GM/DL (13.0-17.0) 9.3 GM/DL (13.0-17.0) Hematocrit 28.6 % (39.0-51.0) 27.7 % (39.0-51.0) Platelet Count 103 TH/MM3 (150-450) 95 TH/MM3 (150-450) Neutrophils # (Auto) 1.6 TH/MM3 (1.8-7.7) Lymphocytes # (Auto) 0.9 TH/MM3 (1.0-4.8) Random Glucose 143 MG/DL (74-106) Total Protein 4.9 GM/DL (6.4-8.2) Albumin 2.5 GM/DL (3.4-5.0) Calcium Level 7.9 MG/DL (8.5-10.1) Alanine Aminotransferase (ALT/SGPT) 84 U/L (12-78) Chloride Level 111 MEQ/L (98-107) Free Thyroxine 0.64 NG/DL (0.76-1.46) Red Cell Distribution Width 17.4 % (11.6-17.2) Mean Platelet Volume 6.6 FL (7.0-11.0) Creatinine 0.43 MG/DL (0.60-1.30) Imaging Last Impressions Ankle X-Ray 02/24/17 1409 Signed Impressions: Service Date/Time: Friday, February 24, 2017 15:04 - CONCLUSION: 1. No acute fracture or subluxation of the right ankle. 2. Mild fibular talar osteoarthritis. 3. Potentially an old, healed fracture of the distal fibula. Oleg Manrique MD Head CT 02/24/171401 Signed Impressions: Service Date/Time: Friday, February 24, 2017 15:07 - CONCLUSION: 1. No evidence of acute intracranial pathology. No masses are identified. Mild ischemic changes Bert Austin MD Chest X-Ray 02/24/171401 Signed Impressions: Service Date/Time: Friday, February 24, 2017 15:02 - CONCLUSION: No evidence of acute cardiopulmonary disease. Oleg Manrique MD Hospital Course This is a 57 year old white male who, according to the record, was found lying outside on the ground for an unknown period of time. The patient reported that he passed out. He was brought into the emergency room for further evaluation. Since he has been here, he had multiple complaints of aching and malaise all over. He states that he has pain in his legs, that his feet are going numb and that he has had trouble walking for the past few months. He does note some nausea and vomiting a few times, denies any dizziness. The patient does stutter and repeat himself frequently. He has known bipolar disorder and has been placed on [place]. He states that he tries to take his medicines, but that it is very difficult. It is unknown whether he is taking his medications or not. The patient initially was tachycardic in the emergency room, but heart rate came down to 96. The patient states he may have had a fever in the recent past, but it is unknown. Pt. is a poor historian. According to the record, he does have an extensive psychiatric history. During exam, the patient started complaining of penile pain, states he also has had trouble with dysuria and constipation. 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 Sodium 146, potassium 3.2, chloride 109, carbon dioxide 26.2, BUN 36, creatinine 0.92, GFR 85, random glucose 113, lactic acid 3.9, now 2.5. Calcium 8.2, magnesium 1.2. AST 27, ALT 111, total creatine kinase 139, alkaline phosphatase 105. CK MB 2. Troponin 0.04. Total protein 6.1. Albumin 3.2, TSH third generation 0.231. Urine is yellow, clear, positive for protein at 30, ketones at 10, negative for glucose, occult blood, nitrites, bilirubin, leukocyte esterase. PH is 7, specific gravity 1.026. No culture is indicated. IMAGING STUDIES Left ankle x-ray minimal osteoarthritis. Right ankle x-ray shows no acute fracture, mild fibula talar osteoarthritis, potentially an old heel fracture of the distal fibula. Chest x-ray - no evidence of acute cardiopulmonary disease. Head CT - no evidence of acute intracranial pathology, no masses are identified. Mild ischemic changes. During the course of the hospitalization, the following took place. Patient admitted with Generalized weakness, lactic acidosis, tachycardia, possibly dehydration, rule out infection Had Positive blood cultures Put on IV fluids and empiric antibiotics Blood cultures gram-positive, staph coagulase negative, sensitivity pending. Possibly contaminant WBC trending down, no fever. Recommended to continue on antibiotics. Weakness, dehydration possibly from not taking enough fluids not eating. Consulted physical therapy for evaluation History of bipolar disorder Continued with psychiatric meds Psychiatry consulted, evaluated patient. There was no need for inpatient psychiatric care Recommended to follow up with Dr. Ramachandran as outpatient Was found with Dehydration, hypernatremia -Continue with IV fluids Renal function improved Was noted with Thrombocytopenia and Leukopenia Possibly secondary to psychiatric Continue to monitor CBC Depressed TSH, free T4 0.64 Repeated TSH today, it was normal. Physical therapy for evaluation and treatment Case management for discharge planning, 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 Patient discharged home with home health care in stable condition Pt Condition on Discharge: Stable Discharge Disposition: Disch w/ Home Health Serv Discharge Instructions DIET: Follow Instructions for: Heart Healthy Diet Activities you can perform: Weight Bearing as Zachary Follow up Referrals: PCP Follow-up Psychiatry Adult New Medications: Cefuroxime (Cefuroxime) 500 Mg Tab 500 MG PO BID for Infection, #28 TAB 0 Refills Continued Medications: Bupropion HCl ER 24 HR (Wellbutrin Xl 24 HR) 150 Mg Tab 150 MG PO DAILY for Control Depression, TAB 0 Refills Diazepam (Valium) 5 Mg Tab 5 MG PO TID, TAB 0 Refills Divalproex ER (Depakote ER) 500 Mg Viviana 500 MG PO DAILY IN THE AM for Control Seizures, #30 TAB 0 Refills Divalproex ER (Depakote ER) 500 Mg Viviana 1000 MG PO HS for Control Seizures, #60 TAB 0 Refills Hydrochlorothiazide (Hydrochlorothiazide) 25 Mg Tab 25 MG PO DAILY, #30 TAB 0 Refills Lisinopril (Lisinopril) 40 Mg Tab 40 MG PO DAILY for Blood Pressure Management, #30 TAB 0 Refills [place] Carbonate ([place] Carbonate) 150 Mg Cap 150 MG PO QID, CAP 0 Refills Lurasidone (Latuda) 40 Mg Tab 40 MG PO HS, #30 TAB 0 Refills Olanzapine (Zyprexa) 10 Mg Tab 10 MG PO HS, #30 TAB 0 Refills Omeprazole (Omeprazole) 20 Mg Tab 20 MG PO DAILY, #30 TAB 0 Refills Terazosin (Terazosin) 5 Mg Cap 5 MG PO DAILY, #30 CAP 0 Refills Dara Noble [facility] Feb 27, 2017 18:38
== END 2017-02-26 13:52 | disposition home health service (06) | DRG 872 ==
LOC: NEPE 13:48 → NEDA 16:06 → OBSVTOIN 16:27 → NEPHCDU 18:09
PROVIDERS: ADMIT Specialist; ATTEND Specialist
DX: A41.1 Sepsis due to other specified staphylococcus (principal); N17.9 Acute kidney failure, unspecified; E87.2 Acidosis; E87.0 Hyperosmolality and hypernatremia; D69.6 Thrombocytopenia, unspecified; E83.42 Hypomagnesemia; R55 Syncope and collapse; E86.0 Dehydration; I10 Essential (primary) hypertension; F17.210 Nicotine dependence, cigarettes, uncomplicated; N40.0 Benign prostatic hyperplasia without lower urinary tract symptoms; F31.9 Bipolar disorder, unspecified; F41.9 Anxiety disorder, unspecified; E78.5 Hyperlipidemia, unspecified; R00.0 Tachycardia, unspecified; R53.1 Weakness; D64.9 Anemia, unspecified; E87.6 Hypokalemia; F80.81 Childhood onset fluency disorder; J44.9 Chronic obstructive pulmonary disease, unspecified; M19.072 Primary osteoarthritis, left ankle and foot; M25.571 Pain in right ankle and joints of right foot; R26.2 Difficulty in walking, not elsewhere classified; D63.8 Anemia in other chronic diseases classified elsewhere; Z23 Encounter for immunization; Z91.19 Patient's noncompliance with other medical treatment and regimen
CPT/HCPCS: 70450; 71010; 73600; 80053; 80164; 80178; 80307; 81001; 82550; 82552; 82565; 83605; 83735; 84439; 84443; 84484; 85025; 85027; 86403; 87040; 87077; 87186; 87205; 90471; 90732; 93005; 96361; 96365; G0009; J1650; J2543; J3370; J3475; J7030; J7040; J7050